=== PATIENT | male | born 1965 | race Caucasian/White ===

== ENCOUNTER 2019-08-20 08:47 | Emergency (ER) | payer MEDICAID, OTHER ==
[~2019-08-20] VITALS: Ht 185.4 cm; Wt 100.0 kg
[~2019-08-20 08:47] MED LIST: ALLO100T PO; FOLI1 PO; MULT-1239 PO; OLAN7.5T2 PO; SERT50TA12 PO; THIA100T67 PO
[2019-08-20 09:11] LABS: BASOPHILS % (AUTO) 0.8 % (0.0-2.0); EOSINOPHILS % (AUTO) 0.9 % (1.0-6.0); HEMATOCRIT 43.7 % (41-53); HEMOGLOBIN 14.7 g/dL (13.5-17.5); LYMPHOCYTES # (AUTO) 1.9 K/uL (1.0-4.8); LYMPHOCYTES % (AUTO) 29.7 % (22.0-44.0); MEAN CORPUSCULAR HEMOGLOBIN 30.5 pg (26.0-34.0); MEAN CORPUSCULAR HGB CONC 33.7 G/dL (31.0-37.0); MEAN CORPUSCULAR VOLUME 91 fL (80-100); MONOCYTES # (AUTO) 0.6 K/uL (0.1-1.0); MONOCYTES % (AUTO) 8.7 % (2.0-9.0); NEUTROPHILS # (AUTO) 3.8 K/uL (1.8-7.7); NEUTROPHILS % (AUTO) 59.9 % (40.0-70.0); PLATELET COUNT (AUTO) 162 K/uL (150-450); RED BLOOD CELL COUNT(AUTO) 4.81 MIL/uL (4.50-5.90); RED CELL DISTRIBUTION WIDTH 15.3 % (11.5-14.5)
[2019-08-20 09:20] LABS: ANION GAP 8 mmol/L (8-16); CALCIUM, TOTAL 9.1 mg/dL (8.8-10.5); CARBON DIOXIDE 30 mmol/L (22-29); CHLORIDE 109 mmol/L (98-107); CREATININE 0.79 mg/dL (0.60-1.30); GLOMERULAR FILTR. RATE CALC > 60 mL/min (>60); GLUCOSE,RANDOM 101 mg/dL (70-110); POTASSIUM 3.6 mmol/L (3.5-5.1); SODIUM SERUM 147 mmol/L (136-145); UREA NITROGEN, BLOOD 16 mg/dL (7-18)
[2019-08-20 09:26] LABS: ALANINE AMINOTRANSFERASE 32 U/L (12-78); ALBUMIN 3.9 g/dL (3.4-5.0); ALKALINE PHOSPHATASE 78 U/L (46-116); ASPARTATE AMINOTRANSFERASE 22 U/L (15-37); BILIRUBIN,TOTAL 0.5 mg/dL (0.1-1.0); TOTAL PROTEIN, SERUM 7.5 g/dL (6.4-8.2)
[2019-08-20] MEDS ORDERED: OLANZapine 5 MG TABLET PO ONE (11:45)
[2019-08-20 13:11] LABS: AMPHET/METH SCREEN,URINE NEGATIVE (NEGATIVE); BARBITURATE SCREEN, URINE NEGATIVE (NEGATIVE); BENZODIAZEPINES SCREEN,URINE NEGATIVE (NEGATIVE); CANNABINOID SCREEN,URINE NEGATIVE (NEGATIVE); COCAINE SCREEN,URINE NEGATIVE (NEGATIVE); METHADONE SCREEN, URINE NEGATIVE (NEGATIVE); OPIATE SCREEN,URINE POSITIVE (NEGATIVE)
[2019-08-20 13:14] LABS: PHENCYCLIDINE SCREEN,URINE NEGATIVE (NEGATIVE)
[2019-08-20 14:08] VITALS: BP 141/85
== END 2019-08-20 14:27 | disposition home or self-care (01) ==
LOC: EMS 08:48
DX: F25.1 Schizoaffective disorder, depressive type (principal); I10 Essential (primary) hypertension; F10.20 Alcohol dependence, uncomplicated; F12.90 Cannabis use, unspecified, uncomplicated; Z79.899 Other long term (current) drug therapy; Z98.890 Other specified postprocedural states
CPT/HCPCS: 36415; 80053; 80307; 85025; 99284; G0480

== ENCOUNTER 2019-11-25 18:07 | Inpatient (IN) | payer MEDICAID, OTHER ==
[~2019-11-25] VITALS: Ht 182.9 cm; Wt 119.3 kg
[~2019-11-25 18:07] MED LIST changes: -ALLO100T PO; -FOLI1 PO; -MULT-1239 PO; -THIA100T67 PO
[2019-11-25] MEDS ORDERED: ALLO300 PO (20:34)
[2019-11-25] MEDS ORDERED: LISI-618 PO (20:34)
[2019-11-25] MEDS ORDERED: HALOPERIDOL 5 MG TABLET PO ONE (21:15)
[2019-11-25] MEDS ORDERED: LORazepam 2 MG TABLET PO ONE (21:15)
[2019-11-25] MEDS ORDERED: DiphenhydrAMINE HCL 25 MG CAPSULE PO ONE (21:15)
[2019-11-25] MEDS ORDERED: HALOPERIDOL 5 MG TABLET PO PRN (21:30)
[2019-11-25] MEDS ORDERED: LORazepam 2 MG TABLET PO PRN (21:30)
[2019-11-25] MEDS ORDERED: ZOLPIDEM TARTRATE 10 MG TABLET PO PRN (21:30)
[2019-11-25 21:47] LABS: BASOPHILS % (AUTO) 1.3 % (0.0-2.0); EOSINOPHILS % (AUTO) 0.3 % (1.0-6.0); HEMATOCRIT 47.6 % (41-53); HEMOGLOBIN 15.5 g/dL (13.5-17.5); LYMPHOCYTES # (AUTO) 1.4 K/uL (1.0-4.8); MEAN CORPUSCULAR HGB CONC 32.6 G/dL (31.0-37.0); MEAN CORPUSCULAR VOLUME 92 fL (80-100); MONOCYTES # (AUTO) 0.4 K/uL (0.1-1.0); MONOCYTES % (AUTO) 9.3 % (2.0-9.0); NEUTROPHILS # (AUTO) 2.2 K/uL (1.8-7.7); NEUTROPHILS % (AUTO) 54.1 % (40.0-70.0); PLATELET COUNT (AUTO) 142 K/uL (150-450); RED BLOOD CELL COUNT(AUTO) 5.17 MIL/uL (4.50-5.90); RED CELL DISTRIBUTION WIDTH 15.2 % (11.5-14.5)
[2019-11-25 21:59] LABS: ANION GAP 11 mmol/L (8-16); CALCIUM, TOTAL 8.8 mg/dL (8.8-10.5); CARBON DIOXIDE 30 mmol/L (22-29); CHLORIDE 103 mmol/L (98-107); CREATININE 0.93 mg/dL (0.60-1.30); GLOMERULAR FILTR. RATE CALC > 60 mL/min (>60); GLUCOSE,RANDOM 110 mg/dL (70-110); SODIUM SERUM 144 mmol/L (136-145); UREA NITROGEN, BLOOD 12 mg/dL (7-18)
[2019-11-25 22:06] LABS: ALANINE AMINOTRANSFERASE 121 U/L (12-78); ALBUMIN 4.2 g/dL (3.4-5.0); ALKALINE PHOSPHATASE 102 U/L (46-116); ASPARTATE AMINOTRANSFERASE 128 U/L (15-37); BILIRUBIN,TOTAL 0.5 mg/dL (0.1-1.0); TOTAL PROTEIN, SERUM 8.1 g/dL (6.4-8.2)
[2019-11-25 22:20] LABS: AMPHET/METH SCREEN,URINE POSITIVE (NEGATIVE); BARBITURATE SCREEN, URINE NEGATIVE (NEGATIVE); BENZODIAZEPINES SCREEN,URINE NEGATIVE (NEGATIVE); CANNABINOID SCREEN,URINE NEGATIVE (NEGATIVE); COCAINE SCREEN,URINE NEGATIVE (NEGATIVE); METHADONE SCREEN, URINE NEGATIVE (NEGATIVE); OPIATE SCREEN,URINE NEGATIVE (NEGATIVE)
[2019-11-25 22:22] LABS: PHENCYCLIDINE SCREEN,URINE NEGATIVE (NEGATIVE)
[2019-11-26] VITALS (12 sets, daily range): BP systolic 109–164; BP diastolic 70–106
[2019-11-26] MEDS ORDERED: PNEUMOCOCCAL VACCINE POLYVALENT 0.5 ML VIAL [PPSV23] IM ONE (02:30)
[2019-11-26] MEDS ORDERED: LORazepam 2 MG TABLET PO PRN (07:00)
[2019-11-26] MEDS: LORazepam 2 MG TABLET PO SCH ×4 (08:39→20:58)
[2019-11-26] MEDS: LISINOPRIL 20 MG TABLET PO SCH (09:01)
[2019-11-26 09:43] LABS: CHOL/HDL RATIO 1.8 (4.2-7.3)
[2019-11-26] MEDS ORDERED: GuaiFENesin/D-METHORPHAN [SUGAR-FREE] 200-20MG/10 ML SYRUP UDCUP PO PRN (11:15)
[2019-11-26] MEDS ORDERED: CloNIDine HCL 0.1 MG TABLET PO PRN (11:15)
[2019-11-26] MEDS ORDERED: IBUPROFEN 400 MG TABLET PO PRN (11:15)
[2019-11-26] MEDS ORDERED: ACETAMINOPHEN 325 MG TABLET PO PRN (11:15)
[2019-11-26] MEDS ORDERED: MAGNESIUM HYDROXIDE SUSPENSION 30 ML UDCUP PO PRN (11:15)
[2019-11-26] MEDS ORDERED: ONDANSETRON HCL 4 MG TABLET PO PRN (11:15)
[2019-11-26] MEDS ORDERED: PETROLATUM,WHITE 28 GM JELLY TP PRN (11:15)
[2019-11-26] MEDS ORDERED: MAG HYDROX/AL HYDROX/SIMETH ES 30 ML SUSPENSION UDCUP PO PRN (11:15)
[2019-11-26] MEDS ORDERED: ALBUTEROL SULFATE HFA 90 MCG/PUFF 8 GM INHALER IH PRN (11:15)
[2019-11-26] MEDS ORDERED: NICOTINE 14 MG/24 HOUR PATCH TD PRN (11:15)
[2019-11-26] MEDS ORDERED: DOCUSATE SODIUM 100 MG CAPSULE PO PRN (11:15)
[2019-11-26] MEDS ORDERED: LOPERAMIDE HCL 2 MG CAPSULE PO PRN (11:15)
[2019-11-26] MEDS ORDERED: OLAN10TA3 PO (11:17)
[2019-11-26] MEDS: OLANZapine 5 MG TABLET PO SCH (16:28)
[2019-11-27] VITALS: BP 130/78
[2019-11-27 08:41] VITALS: BP 160/86
[2019-11-27] MEDS: SERTRALINE HCL 50 MG TABLET PO SCH (09:01)
[2019-11-27] MEDS: OLANZapine 5 MG TABLET PO SCH ×2 (09:01→16:47)
[2019-11-27] MEDS: ALLOPURINOL 300 MG TABLET PO SCH (09:01)
[2019-11-27] MEDS: LISINOPRIL 20 MG TABLET PO SCH (09:02)
[2019-11-27] MEDS: LORazepam 2 MG TABLET PO SCH ×4 (09:02→20:19)
[2019-11-27 09:28] VITALS: BP 160/86
[2019-11-27 12:46] VITALS: BP 155/92
[2019-11-27 16:40] VITALS: BP 131/81
[2019-11-27 20:10] VITALS: BP 144/88
[2019-11-28 00:25] VITALS: BP 154/91
[2019-11-28] MEDS ORDERED: LORazepam 1 MG TABLET PO PRN (07:00)
[2019-11-28] MEDS: LISINOPRIL 20 MG TABLET PO SCH (08:29)
[2019-11-28] MEDS: ALLOPURINOL 300 MG TABLET PO SCH (08:29)
[2019-11-28] MEDS: SERTRALINE HCL 50 MG TABLET PO SCH (08:29)
[2019-11-28] MEDS: OLANZapine 5 MG TABLET PO SCH ×2 (08:29→16:15)
[2019-11-28] MEDS: LORazepam 1 MG TABLET PO SCH ×4 (08:29→20:08)
[2019-11-28 08:39] VITALS: BP 136/100
[2019-11-28 16:46] VITALS: BP 145/76
[2019-11-29] MEDS ORDERED: LORazepam 1 MG TABLET PO PRN (07:00)
[2019-11-29 08:58] VITALS: BP 154/91
[2019-11-29] MEDS: SERTRALINE HCL 50 MG TABLET PO SCH (09:25)
[2019-11-29] MEDS: ALLOPURINOL 300 MG TABLET PO SCH (09:25)
[2019-11-29] MEDS: LISINOPRIL 20 MG TABLET PO SCH (09:25)
[2019-11-29] MEDS: OLANZapine 5 MG TABLET PO SCH ×2 (09:25→16:09)
[2019-11-29] MEDS ORDERED: OLAN5TAB2 PO (14:19)
[2019-11-29] MEDS ORDERED: SERT50TA12 PO (14:19)
== END 2019-11-29 16:45 | disposition home or self-care (01) | DRG 885 ==
LOC: EMS 18:09 → 3EI 21:23
PROVIDERS: ADMIT Psychiatry & Neurology Psychiatry; ATTEND Psychiatry & Neurology Psychiatry
DX: F25.1 Schizoaffective disorder, depressive type (principal); R45.851 Suicidal ideations; E78.5 Hyperlipidemia, unspecified; I10 Essential (primary) hypertension; M10.9 Gout, unspecified; Y90.9 Presence of alcohol in blood, level not specified; F17.200 Nicotine dependence, unspecified, uncomplicated; F41.0 Panic disorder [episodic paroxysmal anxiety]; F41.9 Anxiety disorder, unspecified; Z59.0 Homelessness; Z91.14 Patient's other noncompliance with medication regimen; F10.20 Alcohol dependence, uncomplicated; F12.90 Cannabis use, unspecified, uncomplicated; F19.10 Other psychoactive substance abuse, uncomplicated; R74.0 Nonspecific elevation of levels of transaminase and lactic acid dehydrogenase [LDH]; Z28.21 Immunization not carried out because of patient refusal
CPT/HCPCS: 84443; G0480; Q0162

== ENCOUNTER 2020-02-01 20:49 | Inpatient (IN) | payer MEDICAID ==
[~2020-02-01] VITALS: Ht 185.4 cm; Wt 95.1 kg
[~2020-02-01 20:49] MED LIST changes: +ALLO-45 PO; +LISI-618 PO; +OLAN5TAB2 PO; -OLAN7.5T2 PO
[2020-02-01] MEDS ORDERED: AMLO2.5T96 PO (22:17)
[2020-02-01] MEDS ORDERED: HALOPERIDOL 5 MG TABLET PO PRN (22:30)
[2020-02-02 00:36] VITALS: BP 136/75
[2020-02-02] MEDS ORDERED: PNEUMOCOCCAL VACCINE POLYVALENT 0.5 ML VIAL [PPSV23] IM ONE (03:30)
[2020-02-02 08:15] VITALS: BP 118/64
[2020-02-02] MEDS: LISINOPRIL 20 MG TABLET PO SCH (08:24)
[2020-02-02] MEDS: AmLODIPine BESYLATE 2.5 MG TABLET PO SCH (08:24)
[2020-02-02 08:44] LABS: HEMATOCRIT 38.6 % (41-53); HEMOGLOBIN 12.9 g/dL (13.5-17.5); RED BLOOD CELL COUNT(AUTO) 4.06 MIL/uL (4.50-5.90)
[2020-02-02 08:45] LABS: BASOPHILS % (AUTO) 0.5 % (0.0-2.0); EOSINOPHILS % (AUTO) 4.8 % (1.0-6.0); LYMPHOCYTES # (AUTO) 1.2 K/uL (1.0-4.8); LYMPHOCYTES % (AUTO) 36.4 % (22.0-44.0); MEAN CORPUSCULAR HEMOGLOBIN 31.8 pg (26.0-34.0); MEAN CORPUSCULAR HGB CONC 33.4 G/dL (31.0-37.0); MEAN CORPUSCULAR VOLUME 95 fL (80-100); MONOCYTES # (AUTO) 0.2 K/uL (0.1-1.0); MONOCYTES % (AUTO) 7.6 % (2.0-9.0); NEUTROPHILS # (AUTO) 1.6 K/uL (1.8-7.7); NEUTROPHILS % (AUTO) 50.7 % (40.0-70.0); RED CELL DISTRIBUTION WIDTH 16.2 % (11.5-14.5)
[2020-02-02] MEDS ORDERED: CloNIDine HCL 0.1 MG TABLET PO PRN (08:45)
[2020-02-02] MEDS ORDERED: ONDANSETRON HCL 4 MG TABLET PO PRN (08:45)
[2020-02-02] MEDS ORDERED: ACETAMINOPHEN 325 MG TABLET PO PRN (08:45)
[2020-02-02] MEDS ORDERED: LOPERAMIDE HCL 2 MG CAPSULE PO PRN (08:45)
[2020-02-02] MEDS ORDERED: NICOTINE 14 MG/24 HOUR PATCH TD PRN (08:45)
[2020-02-02] MEDS ORDERED: GuaiFENesin/D-METHORPHAN [SUGAR-FREE] 200-20MG/10 ML SYRUP UDCUP PO PRN (08:45)
[2020-02-02] MEDS ORDERED: MAGNESIUM HYDROXIDE SUSPENSION 30 ML UDCUP PO PRN (08:45)
[2020-02-02] MEDS ORDERED: IBUPROFEN 400 MG TABLET PO PRN (08:45)
[2020-02-02] MEDS ORDERED: DOCUSATE SODIUM 100 MG CAPSULE PO PRN (08:45)
[2020-02-02] MEDS ORDERED: PETROLATUM,WHITE 28 GM JELLY TP PRN (08:45)
[2020-02-02] MEDS ORDERED: ALBUTEROL SULFATE HFA 90 MCG/PUFF 8 GM INHALER IH PRN (08:45)
[2020-02-02 08:49] LABS: HEMOGLOBIN A1C 5.3 % (3.8-5.6)
[2020-02-02 08:51] LABS: ALANINE AMINOTRANSFERASE 109 U/L (12-78); ALBUMIN 3.2 g/dL (3.4-5.0); ALKALINE PHOSPHATASE 67 U/L (46-116); ANION GAP 8 mmol/L (8-16); ASPARTATE AMINOTRANSFERASE 61 U/L (15-37); BILIRUBIN,TOTAL 0.4 mg/dL (0.1-1.0); CALCIUM, TOTAL 8.8 mg/dL (8.8-10.5); CARBON DIOXIDE 31 mmol/L (22-29); CHLORIDE 105 mmol/L (98-107); CHOLESTEROL 171 mg/dL (131-200); CREATININE 0.75 mg/dL (0.60-1.30); FREE T4 (FREE THYROXINE) 0.84 ng/dL (0.76-1.46); GLOMERULAR FILTR. RATE CALC > 60 mL/min (>60); GLUCOSE,RANDOM 92 mg/dL (70-110); HDL CHOLESTEROL 85 mg/dL (40-60); LDL CHOL (CALC.) 74 mg/dL (0-130); POTASSIUM 3.1 mmol/L (3.5-5.1); SODIUM SERUM 144 mmol/L (136-145); THYROID STIMULATING HORMONE 2.19 uIU/mL (0.36-3.74); TOTAL PROTEIN, SERUM 6.4 g/dL (6.4-8.2); TRIGLYCERIDES 59 mg/dL (15-150); UREA NITROGEN, BLOOD 10 mg/dL (7-18)
[2020-02-02 08:57] LABS: PLATELET COUNT (AUTO) 71 K/uL (150-450)
[2020-02-02] MEDS ORDERED: POTASSIUM CHLORIDE 20 MEQ ER TABLET PO ONE (12:30)
[2020-02-02] MEDS: SERTRALINE HCL 50 MG TABLET PO SCH (15:48)
[2020-02-02] MEDS: ALLOPURINOL 300 MG TABLET PO SCH (15:49)
[2020-02-02 16:00] VITALS: BP 140/82
[2020-02-02] MEDS: OLANZapine 5 MG TABLET PO SCH (20:09)
[2020-02-03 01:02] VITALS: BP 146/85
[2020-02-03] MEDS: LISINOPRIL 20 MG TABLET PO SCH (08:47)
[2020-02-03] MEDS: AmLODIPine BESYLATE 2.5 MG TABLET PO SCH (08:47)
[2020-02-03] MEDS: ALLOPURINOL 300 MG TABLET PO SCH (08:47)
[2020-02-03] MEDS: SERTRALINE HCL 50 MG TABLET PO SCH (08:48)
[2020-02-03] MEDS: OLANZapine 5 MG TABLET PO SCH ×2 (08:48→20:03)
[2020-02-03 09:22] VITALS: BP 141/80
[2020-02-03 16:01] VITALS: BP 118/79
[2020-02-04 01:08] VITALS: BP 126/83
[2020-02-04 08:04] VITALS: BP 118/68
[2020-02-04] MEDS: OLANZapine 5 MG TABLET PO SCH ×2 (08:09→20:08)
[2020-02-04] MEDS: AmLODIPine BESYLATE 2.5 MG TABLET PO SCH (08:09)
[2020-02-04] MEDS: SERTRALINE HCL 50 MG TABLET PO SCH (08:09)
[2020-02-04] MEDS: ALLOPURINOL 300 MG TABLET PO SCH (08:09)
[2020-02-04] MEDS: LISINOPRIL 20 MG TABLET PO SCH (08:09)
[2020-02-04 16:05] VITALS: BP_SYST 118; BP_SYST 120; BP_DIAS 68; BP_DIAS 70
[2020-02-04] MEDS: ZOLPIDEM TARTRATE 10 MG TABLET PO PRN (20:49)
[2020-02-05 01:02] VITALS: BP 108/76
[2020-02-05] MEDS: OLANZapine 5 MG TABLET PO SCH ×2 (08:04→20:43)
[2020-02-05] MEDS: AmLODIPine BESYLATE 2.5 MG TABLET PO SCH (08:04)
[2020-02-05] MEDS: ALLOPURINOL 300 MG TABLET PO SCH (08:04)
[2020-02-05] MEDS: SERTRALINE HCL 50 MG TABLET PO SCH (08:04)
[2020-02-05] MEDS: LISINOPRIL 20 MG TABLET PO SCH (08:04)
[2020-02-05 08:06] VITALS: BP 121/70
[2020-02-05] MEDS: LORazepam 2 MG TABLET PO PRN (17:35)
[2020-02-05 18:01] VITALS: BP 144/83
[2020-02-05] MEDS: ZOLPIDEM TARTRATE 10 MG TABLET PO PRN (20:49)
[2020-02-06 00:24] VITALS: BP 132/68
[2020-02-06] MEDS: LISINOPRIL 20 MG TABLET PO SCH (08:37)
[2020-02-06] MEDS: AmLODIPine BESYLATE 2.5 MG TABLET PO SCH (08:37)
[2020-02-06] MEDS: ALLOPURINOL 300 MG TABLET PO SCH (08:37)
[2020-02-06] MEDS: OLANZapine 5 MG TABLET PO SCH ×2 (08:37→20:04)
[2020-02-06] MEDS: SERTRALINE HCL 50 MG TABLET PO SCH (08:37)
[2020-02-06 08:55] VITALS: BP 126/77
[2020-02-06] MEDS: LORazepam 2 MG TABLET PO PRN ×2 (10:45→17:11)
[2020-02-06 16:20] VITALS: BP 108/61
[2020-02-06] MEDS: ZOLPIDEM TARTRATE 10 MG TABLET PO PRN (21:04)
[2020-02-07 06:16] VITALS: BP 139/78
[2020-02-07] MEDS: AmLODIPine BESYLATE 2.5 MG TABLET PO SCH (08:01)
[2020-02-07] MEDS: SERTRALINE HCL 50 MG TABLET PO SCH (08:01)
[2020-02-07] MEDS: ALLOPURINOL 300 MG TABLET PO SCH (08:01)
[2020-02-07] MEDS: LISINOPRIL 20 MG TABLET PO SCH (08:01)
[2020-02-07] MEDS: OLANZapine 5 MG TABLET PO SCH ×2 (08:01→20:34)
[2020-02-07 08:28] VITALS: BP 130/96
[2020-02-07] MEDS: LORazepam 2 MG TABLET PO PRN (15:54)
[2020-02-07 16:03] VITALS: BP 117/74
[2020-02-07] MEDS: ZOLPIDEM TARTRATE 10 MG TABLET PO PRN (20:51)
[2020-02-08] MEDS: LORazepam 2 MG TABLET PO PRN ×2 (03:42→16:18)
[2020-02-08 06:30] VITALS: BP 124/82
[2020-02-08] MEDS: ALLOPURINOL 300 MG TABLET PO SCH (08:02)
[2020-02-08] MEDS: OLANZapine 5 MG TABLET PO SCH ×2 (08:03→20:13)
[2020-02-08] MEDS: AmLODIPine BESYLATE 2.5 MG TABLET PO SCH (08:03)
[2020-02-08] MEDS: LISINOPRIL 20 MG TABLET PO SCH (08:03)
[2020-02-08] MEDS: SERTRALINE HCL 50 MG TABLET PO SCH (08:03)
[2020-02-08] MEDS: MULTIVITAMINS WITH IRON TABLET PO SCH (08:03)
[2020-02-08 08:05] VITALS: BP 128/74
[2020-02-08 16:00] VITALS: BP 127/78
[2020-02-09 01:04] VITALS: BP 123/72
[2020-02-09 08:07] VITALS: BP 119/69
[2020-02-09] MEDS: LORazepam 2 MG TABLET PO PRN ×2 (08:15→17:05)
[2020-02-09] MEDS: MULTIVITAMINS WITH IRON TABLET PO SCH (08:15)
[2020-02-09] MEDS: AmLODIPine BESYLATE 2.5 MG TABLET PO SCH (08:15)
[2020-02-09] MEDS: OLANZapine 5 MG TABLET PO SCH ×2 (08:15→20:09)
[2020-02-09] MEDS: ALLOPURINOL 300 MG TABLET PO SCH (08:15)
[2020-02-09] MEDS: LISINOPRIL 20 MG TABLET PO SCH (08:15)
[2020-02-09] MEDS: SERTRALINE HCL 50 MG TABLET PO SCH (08:16)
[2020-02-09 16:18] VITALS: BP 120/63
[2020-02-10 00:45] VITALS: BP 122/80
[2020-02-10] MEDS: LORazepam 2 MG TABLET PO PRN ×2 (00:48→12:27)
[2020-02-10] MEDS: ZOLPIDEM TARTRATE 10 MG TABLET PO PRN (00:48)
[2020-02-10 08:10] VITALS: BP 122/81
[2020-02-10] MEDS: MULTIVITAMINS WITH IRON TABLET PO SCH (09:20)
[2020-02-10] MEDS: OLANZapine 5 MG TABLET PO SCH ×2 (09:20→20:26)
[2020-02-10] MEDS: SERTRALINE HCL 50 MG TABLET PO SCH (09:20)
[2020-02-10] MEDS: LISINOPRIL 20 MG TABLET PO SCH (09:20)
[2020-02-10] MEDS: ALLOPURINOL 300 MG TABLET PO SCH (09:20)
[2020-02-10] MEDS: AmLODIPine BESYLATE 2.5 MG TABLET PO SCH (09:20)
[2020-02-10 16:02] VITALS: BP 121/76
[2020-02-11 00:57] VITALS: BP 113/89
[2020-02-11] MEDS: ZOLPIDEM TARTRATE 10 MG TABLET PO PRN (01:03)
[2020-02-11 08:22] VITALS: BP 102/65
[2020-02-11 09:50] VITALS: BP 124/81
[2020-02-11] MEDS: OLANZapine 5 MG TABLET PO SCH ×2 (09:54→20:16)
[2020-02-11] MEDS: LISINOPRIL 20 MG TABLET PO SCH (09:54)
[2020-02-11] MEDS: ALLOPURINOL 300 MG TABLET PO SCH (09:54)
[2020-02-11] MEDS: AmLODIPine BESYLATE 2.5 MG TABLET PO SCH (09:54)
[2020-02-11] MEDS: SERTRALINE HCL 50 MG TABLET PO SCH (09:54)
[2020-02-11] MEDS: MULTIVITAMINS WITH IRON TABLET PO SCH (09:54)
[2020-02-11] MEDS: MAG HYDROX/AL HYDROX/SIMETH ES 30 ML SUSPENSION UDCUP PO PRN (10:01)
[2020-02-11] MEDS: LORazepam 2 MG TABLET PO PRN (13:34)
[2020-02-11 16:35] VITALS: BP 109/63
[2020-02-12 06:42] VITALS: BP 115/72
[2020-02-12 07:26] LABS: BASOPHILS % (AUTO) 0.6 % (0.0-2.0); EOSINOPHILS % (AUTO) 3.5 % (1.0-6.0); HEMATOCRIT 46.4 % (41-53); LYMPHOCYTES # (AUTO) 1.4 K/uL (1.0-4.8); LYMPHOCYTES % (AUTO) 19.7 % (22.0-44.0); MEAN CORPUSCULAR HGB CONC 34.5 G/dL (31.0-37.0); MEAN CORPUSCULAR VOLUME 96 fL (80-100); MONOCYTES # (AUTO) 0.9 K/uL (0.1-1.0); MONOCYTES % (AUTO) 12.8 % (2.0-9.0); NEUTROPHILS # (AUTO) 4.7 K/uL (1.8-7.7); NEUTROPHILS % (AUTO) 63.4 % (40.0-70.0); PLATELET COUNT (AUTO) 311 K/uL (150-450); RED BLOOD CELL COUNT(AUTO) 4.86 MIL/uL (4.50-5.90); RED CELL DISTRIBUTION WIDTH 15.5 % (11.5-14.5)
[2020-02-12 07:49] LABS: ALBUMIN 4.3 g/dL (3.4-5.0); BILIRUBIN,TOTAL 0.6 mg/dL (0.1-1.0); CALCIUM, TOTAL 9.3 mg/dL (8.8-10.5); CREATININE 1.56 mg/dL (0.60-1.30); POTASSIUM 4.8 mmol/L (3.5-5.1); TOTAL PROTEIN, SERUM 7.9 g/dL (6.4-8.2)
[2020-02-12 08:15] VITALS: BP 119/71
[2020-02-12] MEDS: ALLOPURINOL 300 MG TABLET PO SCH (08:15)
[2020-02-12] MEDS: MULTIVITAMINS WITH IRON TABLET PO SCH (08:16)
[2020-02-12] MEDS: LISINOPRIL 20 MG TABLET PO SCH (08:16)
[2020-02-12] MEDS: MAG HYDROX/AL HYDROX/SIMETH ES 30 ML SUSPENSION UDCUP PO PRN (08:16)
[2020-02-12] MEDS: SERTRALINE HCL 50 MG TABLET PO SCH (08:16)
[2020-02-12] MEDS: LORazepam 2 MG TABLET PO PRN (08:16)
[2020-02-12] MEDS: AmLODIPine BESYLATE 2.5 MG TABLET PO SCH (08:16)
[2020-02-12] MEDS: OLANZapine 5 MG TABLET PO SCH (08:16)
[2020-02-12] MEDS ORDERED: MVITFE PO (11:40)
== END 2020-02-12 14:36 | disposition home or self-care (01) | DRG 885 ==
LOC: B2S 22:28
DX: F25.1 Schizoaffective disorder, depressive type (principal); R45.851 Suicidal ideations; F10.20 Alcohol dependence, uncomplicated; I10 Essential (primary) hypertension; M10.9 Gout, unspecified; D64.9 Anemia, unspecified; D72.819 Decreased white blood cell count, unspecified; F41.9 Anxiety disorder, unspecified; E87.6 Hypokalemia; Z79.899 Other long term (current) drug therapy; Z59.0 Homelessness
CPT/HCPCS: 83036; 84132; 84439; 84443; 90732

== ENCOUNTER 2020-09-01 12:33 | Inpatient (IN) | payer MEDICAID, OTHER ==
[~2020-09-01] VITALS: Ht 185.4 cm; Wt 99.7 kg
[~2020-09-01 12:33] MED LIST changes: +AMLO2.5T96 PO; -LISI-618 PO; +LISI20TA24 PO; +MVITFE PO; +SERT-158 PO; -SERT50TA12 PO
[2020-09-01 14:41] LABS: ANION GAP 18 mmol/L (8-16); CALCIUM, TOTAL 9.2 mg/dL (8.8-10.5); CARBON DIOXIDE 23 mmol/L (22-29); CHLORIDE 100 mmol/L (98-107); CREATININE 0.63 mg/dL (0.60-1.30); GLOMERULAR FILTR. RATE CALC > 60 mL/min (>60); GLUCOSE,RANDOM 75 mg/dL (70-110); POTASSIUM 3.1 mmol/L (3.5-5.1); SODIUM SERUM 141 mmol/L (136-145); UREA NITROGEN, BLOOD 5 mg/dL (7-18)
[2020-09-01 14:48] LABS: ALANINE AMINOTRANSFERASE 34 U/L (12-78); ALBUMIN 4.1 g/dL (3.4-5.0); ALKALINE PHOSPHATASE 93 U/L (46-116); ASPARTATE AMINOTRANSFERASE 28 U/L (15-37); BILIRUBIN,TOTAL 0.7 mg/dL (0.1-1.0); TOTAL PROTEIN, SERUM 8.2 g/dL (6.4-8.2)
[2020-09-01] MEDS ORDERED: POTASSIUM CHLORIDE 20 MEQ ER TABLET PO ONE (15:15)
[2020-09-01 15:32] LABS: COVID AG,FIA SOURCE NASOPHARYNGEAL
[2020-09-01 16:31] LABS: BASOPHILS % (AUTO) 0.7 % (0.0-2.0); EOSINOPHILS % (AUTO) 0.3 % (1.0-6.0); HEMATOCRIT 40.2 % (41-53); HEMOGLOBIN 13.5 g/dL (13.5-17.5); LYMPHOCYTES # (AUTO) 1.8 K/uL (1.0-4.8); LYMPHOCYTES % (AUTO) 31.5 % (22.0-44.0); MEAN CORPUSCULAR HEMOGLOBIN 29.7 pg (26.0-34.0); MEAN CORPUSCULAR HGB CONC 33.7 G/dL (31.0-37.0); MEAN CORPUSCULAR VOLUME 88 fL (80-100); MONOCYTES # (AUTO) 0.5 K/uL (0.1-1.0); MONOCYTES % (AUTO) 8.4 % (2.0-9.0); NEUTROPHILS # (AUTO) 3.4 K/uL (1.8-7.7); NEUTROPHILS % (AUTO) 59.1 % (40.0-70.0); PLATELET COUNT (AUTO) 171 K/uL (150-450); RED BLOOD CELL COUNT(AUTO) 4.56 MIL/uL (4.50-5.90); RED CELL DISTRIBUTION WIDTH 16.5 % (11.5-14.5)
[2020-09-01] MEDS ORDERED: LORazepam 2 MG TABLET PO PRN (22:15)
[2020-09-01] MEDS ORDERED: ZOLPIDEM TARTRATE 10 MG TABLET PO PRN (22:15)
[2020-09-02] VITALS (8 sets, daily range): BP systolic 112–154; BP diastolic 68–94
[2020-09-02] MEDS ORDERED: INFLUENZA VIRUS VACCINE QVS 2020-21 (6MO+)/PF 60 MCG/0.5 ML SYRINGE IM ONE (04:45)
[2020-09-02 07:24] LABS: CHOL/HDL RATIO 2.6 (4.2-7.3)
[2020-09-02] MEDS ORDERED: NICOTINE 14 MG/24 HOUR PATCH TD PRN (08:30)
[2020-09-02] MEDS ORDERED: ONDANSETRON HCL 4 MG TABLET PO PRN (08:30)
[2020-09-02] MEDS ORDERED: ACETAMINOPHEN 325 MG TABLET PO PRN (08:30)
[2020-09-02] MEDS ORDERED: IBUPROFEN 400 MG TABLET PO PRN (08:30)
[2020-09-02] MEDS ORDERED: ALBUTEROL SULFATE HFA 90 MCG/PUFF 8 GM INHALER IH PRN (08:30)
[2020-09-02] MEDS ORDERED: PETROLATUM,WHITE 28 GM JELLY TP PRN (08:30)
[2020-09-02] MEDS ORDERED: MAGNESIUM HYDROXIDE SUSPENSION 30 ML UDCUP PO PRN (08:30)
[2020-09-02] MEDS ORDERED: GuaiFENesin/D-METHORPHAN [SUGAR-FREE] 200-20MG/10 ML SYRUP UDCUP PO PRN (08:30)
[2020-09-02] MEDS ORDERED: MAG HYDROX/AL HYDROX/SIMETH ES 30 ML SUSPENSION UDCUP PO PRN (08:30)
[2020-09-02] MEDS ORDERED: CloNIDine HCL 0.1 MG TABLET PO PRN (08:30)
[2020-09-02] MEDS ORDERED: LOPERAMIDE HCL 2 MG CAPSULE PO PRN (08:30)
[2020-09-02] MEDS ORDERED: DOCUSATE SODIUM 100 MG CAPSULE PO PRN (08:30)
[2020-09-02] MEDS ORDERED: MULTIVITAMINS WITH IRON TABLET PO SCH (09:00)
[2020-09-02] MEDS: AmLODIPine BESYLATE 2.5 MG TABLET PO SCH (10:46)
[2020-09-02] MEDS: ALLOPURINOL 300 MG TABLET PO SCH (10:47)
[2020-09-02] MEDS: LISINOPRIL 20 MG TABLET PO SCH (10:47)
[2020-09-02] MEDS ORDERED: CYANOCOBALAMIN 1,000 MCG/ML VIAL IM ONE (15:30)
[2020-09-02] MEDS ORDERED: LORazepam 2 MG TABLET PO PRN (15:30)
[2020-09-02 15:35] LABS: APPEARANCE,URINE CLEAR (CLEAR); BILIRUBIN,URINE NEGATIVE (NEGATIVE); GLUCOSE, URINE (UA) NEGATIVE (NEGATIVE); KETONES,URINE NEGATIVE (NEGATIVE); LEUKOCYTE ESTERASE ,URINE NEGATIVE (NEGATIVE); NITRATE,URINE NEGATIVE (NEGATIVE); OCCULT BLOOD,URINE NEGATIVE (NEGATIVE); PH,URINE 8.5 (5.0-8.0); PROTEIN,URINE NEGATIVE (NEGATIVE)
[2020-09-02 15:40] LABS: AMPHET/METH SCREEN,URINE NEGATIVE (NEGATIVE); BARBITURATE SCREEN, URINE NEGATIVE (NEGATIVE); BENZODIAZEPINES SCREEN,URINE POSITIVE (NEGATIVE); CANNABINOID SCREEN,URINE NEGATIVE (NEGATIVE); COCAINE SCREEN,URINE NEGATIVE (NEGATIVE); METHADONE SCREEN, URINE NEGATIVE (NEGATIVE); OPIATE SCREEN,URINE NEGATIVE (NEGATIVE)
[2020-09-02 15:41] LABS: PHENCYCLIDINE SCREEN,URINE NEGATIVE (NEGATIVE)
[2020-09-02] MEDS: THIAMINE 100 MG TABLET PO SCH (17:03)
[2020-09-02] MEDS: FOLIC ACID 1 MG TABLET PO SCH (17:03)
[2020-09-02] MEDS: MULTIVITAMINS WITH MINERALS, THERAPEUTIC TABLET PO SCH (17:03)
[2020-09-02] MEDS: SERTRALINE HCL 50 MG TABLET PO SCH (17:03)
[2020-09-02] MEDS: OLANZapine 5 MG TABLET PO SCH (20:23)
[2020-09-03 04:00] VITALS: BP 126/64
[2020-09-03] MEDS ORDERED: LORazepam 2 MG TABLET PO PRN (07:00)
[2020-09-03 08:46] VITALS: BP 110/66
[2020-09-03] MEDS: ALLOPURINOL 300 MG TABLET PO SCH (09:52)
[2020-09-03] MEDS: MULTIVITAMINS WITH MINERALS, THERAPEUTIC TABLET PO SCH (09:52)
[2020-09-03] MEDS: LISINOPRIL 20 MG TABLET PO SCH (09:52)
[2020-09-03] MEDS: OLANZapine 5 MG TABLET PO SCH ×2 (09:52→20:28)
[2020-09-03] MEDS: FOLIC ACID 1 MG TABLET PO SCH (09:52)
[2020-09-03] MEDS: LORazepam 2 MG TABLET PO SCH ×4 (09:52→20:29)
[2020-09-03] MEDS: SERTRALINE HCL 50 MG TABLET PO SCH (09:52)
[2020-09-03] MEDS: AmLODIPine BESYLATE 2.5 MG TABLET PO SCH (09:52)
[2020-09-03] MEDS: THIAMINE 100 MG TABLET PO SCH ×2 (09:53→16:50)
[2020-09-03 14:53] VITALS: BP 126/70
[2020-09-03 16:13] VITALS: BP 128/78
[2020-09-04 06:21] VITALS: BP 119/52
[2020-09-04 08:46] VITALS: BP 120/68
[2020-09-04] MEDS: AmLODIPine BESYLATE 2.5 MG TABLET PO SCH (09:24)
[2020-09-04] MEDS: LORazepam 2 MG TABLET PO SCH ×4 (09:24→20:47)
[2020-09-04] MEDS: THIAMINE 100 MG TABLET PO SCH ×2 (09:24→16:40)
[2020-09-04] MEDS: LISINOPRIL 20 MG TABLET PO SCH (09:24)
[2020-09-04] MEDS: FOLIC ACID 1 MG TABLET PO SCH (09:24)
[2020-09-04] MEDS: SERTRALINE HCL 50 MG TABLET PO SCH (09:24)
[2020-09-04] MEDS: MULTIVITAMINS WITH MINERALS, THERAPEUTIC TABLET PO SCH (09:24)
[2020-09-04] MEDS: OLANZapine 5 MG TABLET PO SCH ×2 (09:24→20:47)
[2020-09-04] MEDS: ALLOPURINOL 300 MG TABLET PO SCH (09:24)
[2020-09-04 16:00] VITALS: BP 126/79
[2020-09-04 19:54] VITALS: BP 126/79
[2020-09-04 20:53] VITALS: BP 136/65
[2020-09-05] MEDS ORDERED: LORazepam 1 MG TABLET PO PRN (07:00)
[2020-09-05 07:32] VITALS: BP 136/89
[2020-09-05 08:00] VITALS: BP 145/91
[2020-09-05] MEDS: ALLOPURINOL 300 MG TABLET PO SCH (08:28)
[2020-09-05] MEDS: AmLODIPine BESYLATE 2.5 MG TABLET PO SCH (08:28)
[2020-09-05] MEDS: MULTIVITAMINS WITH MINERALS, THERAPEUTIC TABLET PO SCH (08:28)
[2020-09-05] MEDS: FOLIC ACID 1 MG TABLET PO SCH (08:28)
[2020-09-05] MEDS: THIAMINE 100 MG TABLET PO SCH ×2 (08:28→17:00)
[2020-09-05] MEDS: LORazepam 1 MG TABLET PO SCH ×4 (08:28→20:32)
[2020-09-05] MEDS: OLANZapine 5 MG TABLET PO SCH ×2 (08:28→20:31)
[2020-09-05] MEDS: SERTRALINE HCL 50 MG TABLET PO SCH (08:28)
[2020-09-05] MEDS: LISINOPRIL 20 MG TABLET PO SCH (08:30)
[2020-09-05 16:59] VITALS: BP 114/64
[2020-09-06] MEDS ORDERED: LORazepam 1 MG TABLET PO PRN (07:00)
[2020-09-06 09:10] VITALS: BP 130/93
[2020-09-06] MEDS: LISINOPRIL 20 MG TABLET PO SCH (10:35)
[2020-09-06] MEDS: ALLOPURINOL 300 MG TABLET PO SCH (10:35)
[2020-09-06] MEDS: THIAMINE 100 MG TABLET PO SCH ×2 (10:36→16:48)
[2020-09-06] MEDS: AmLODIPine BESYLATE 2.5 MG TABLET PO SCH (10:36)
[2020-09-06] MEDS: OLANZapine 5 MG TABLET PO SCH ×2 (10:36→20:30)
[2020-09-06] MEDS: MULTIVITAMINS WITH MINERALS, THERAPEUTIC TABLET PO SCH (10:36)
[2020-09-06] MEDS: FOLIC ACID 1 MG TABLET PO SCH (10:36)
[2020-09-06] MEDS: SERTRALINE HCL 50 MG TABLET PO SCH (10:36)
[2020-09-06 16:00] VITALS: BP 120/84
[2020-09-07 08:30] VITALS: BP 123/70
[2020-09-07] MEDS: SERTRALINE HCL 50 MG TABLET PO SCH (09:25)
[2020-09-07] MEDS: THIAMINE 100 MG TABLET PO SCH ×2 (09:25→16:43)
[2020-09-07] MEDS: OLANZapine 5 MG TABLET PO SCH ×2 (09:25→20:53)
[2020-09-07] MEDS: MULTIVITAMINS WITH MINERALS, THERAPEUTIC TABLET PO SCH (09:25)
[2020-09-07] MEDS: LISINOPRIL 20 MG TABLET PO SCH (09:25)
[2020-09-07] MEDS: ALLOPURINOL 300 MG TABLET PO SCH (09:25)
[2020-09-07] MEDS: AmLODIPine BESYLATE 2.5 MG TABLET PO SCH (09:25)
[2020-09-07] MEDS: FOLIC ACID 1 MG TABLET PO SCH (09:25)
[2020-09-07 16:24] VITALS: BP 118/70
[2020-09-08 08:31] VITALS: BP 151/89
[2020-09-08] MEDS: ALLOPURINOL 300 MG TABLET PO SCH (10:43)
[2020-09-08] MEDS: FOLIC ACID 1 MG TABLET PO SCH (10:44)
[2020-09-08] MEDS: MULTIVITAMINS WITH MINERALS, THERAPEUTIC TABLET PO SCH (10:44)
[2020-09-08] MEDS: THIAMINE 100 MG TABLET PO SCH ×2 (10:44→17:02)
[2020-09-08] MEDS: LISINOPRIL 20 MG TABLET PO SCH (10:45)
[2020-09-08] MEDS: OLANZapine 5 MG TABLET PO SCH ×2 (10:45→20:43)
[2020-09-08] MEDS: SERTRALINE HCL 50 MG TABLET PO SCH (10:45)
[2020-09-08] MEDS: AmLODIPine BESYLATE 2.5 MG TABLET PO SCH (10:45)
[2020-09-08 16:42] VITALS: BP 138/74
[2020-09-08 21:06] LABS: COVID AG,FIA SOURCE NASAL SWAB
[2020-09-09 08:33] VITALS: BP 117/76
[2020-09-09] MEDS: OLANZapine 5 MG TABLET PO SCH ×2 (10:03→21:26)
[2020-09-09] MEDS: FOLIC ACID 1 MG TABLET PO SCH (10:03)
[2020-09-09] MEDS: AmLODIPine BESYLATE 2.5 MG TABLET PO SCH (10:03)
[2020-09-09] MEDS: ALLOPURINOL 300 MG TABLET PO SCH (10:03)
[2020-09-09] MEDS: THIAMINE 100 MG TABLET PO SCH ×2 (10:03→17:39)
[2020-09-09] MEDS: SERTRALINE HCL 50 MG TABLET PO SCH (10:03)
[2020-09-09] MEDS: LISINOPRIL 20 MG TABLET PO SCH (10:03)
[2020-09-09] MEDS: MULTIVITAMINS WITH MINERALS, THERAPEUTIC TABLET PO SCH (10:03)
[2020-09-09 16:14] VITALS: BP 121/86
[2020-09-10] MEDS: ALLOPURINOL 300 MG TABLET PO SCH (09:04)
[2020-09-10] MEDS: FOLIC ACID 1 MG TABLET PO SCH (09:04)
[2020-09-10] MEDS: MULTIVITAMINS WITH MINERALS, THERAPEUTIC TABLET PO SCH (09:04)
[2020-09-10] MEDS: AmLODIPine BESYLATE 2.5 MG TABLET PO SCH (09:04)
[2020-09-10] MEDS: THIAMINE 100 MG TABLET PO SCH ×2 (09:04→16:19)
[2020-09-10] MEDS: LISINOPRIL 20 MG TABLET PO SCH (09:04)
[2020-09-10] MEDS: OLANZapine 5 MG TABLET PO SCH ×2 (09:04→20:06)
[2020-09-10] MEDS: SERTRALINE HCL 50 MG TABLET PO SCH (09:04)
[2020-09-10 10:36] VITALS: BP 120/82
[2020-09-10 16:00] VITALS: BP 110/76
[2020-09-11] MEDS: SERTRALINE HCL 50 MG TABLET PO SCH (08:30)
[2020-09-11] MEDS: THIAMINE 100 MG TABLET PO SCH ×2 (08:30→16:35)
[2020-09-11] MEDS: OLANZapine 5 MG TABLET PO SCH ×2 (08:30→20:44)
[2020-09-11] MEDS: ALLOPURINOL 300 MG TABLET PO SCH (08:30)
[2020-09-11] MEDS: MULTIVITAMINS WITH MINERALS, THERAPEUTIC TABLET PO SCH (08:30)
[2020-09-11] MEDS: FOLIC ACID 1 MG TABLET PO SCH (08:30)
[2020-09-11] MEDS: HALOPERIDOL 5 MG TABLET PO PRN ×2 (08:30→18:34)
[2020-09-11] MEDS: LISINOPRIL 20 MG TABLET PO SCH (08:30)
[2020-09-11] MEDS: AmLODIPine BESYLATE 2.5 MG TABLET PO SCH (08:30)
[2020-09-11 08:34] VITALS: BP 126/61
[2020-09-11 17:41] VITALS: BP 104/69
[2020-09-12] MEDS: OLANZapine 5 MG TABLET PO SCH ×2 (08:13→20:18)
[2020-09-12] MEDS: AmLODIPine BESYLATE 2.5 MG TABLET PO SCH (08:13)
[2020-09-12] MEDS: LISINOPRIL 20 MG TABLET PO SCH (08:13)
[2020-09-12] MEDS: SERTRALINE HCL 50 MG TABLET PO SCH (08:13)
[2020-09-12] MEDS: ALLOPURINOL 300 MG TABLET PO SCH (08:13)
[2020-09-12] MEDS: MULTIVITAMINS WITH MINERALS, THERAPEUTIC TABLET PO SCH (08:13)
[2020-09-12] MEDS: THIAMINE 100 MG TABLET PO SCH (08:13)
[2020-09-12 08:27] VITALS: BP 110/79
[2020-09-12] MEDS ORDERED: TUBERCULIN, PURIFIED PROTEIN DERIVATIVE 5 TU/0.1 ML SYRINGE ID ONE (14:30)
[2020-09-12 16:00] VITALS: BP 129/85
[2020-09-12] MEDS: HALOPERIDOL 5 MG TABLET PO PRN (18:35)
[2020-09-13] MEDS: SERTRALINE HCL 50 MG TABLET PO SCH (08:48)
[2020-09-13] MEDS: OLANZapine 5 MG TABLET PO SCH (08:48)
[2020-09-13] MEDS: ALLOPURINOL 300 MG TABLET PO SCH (08:48)
[2020-09-13] MEDS: MULTIVITAMINS WITH MINERALS, THERAPEUTIC TABLET PO SCH (08:48)
[2020-09-13] MEDS: LISINOPRIL 20 MG TABLET PO SCH (08:48)
[2020-09-13] MEDS: AmLODIPine BESYLATE 2.5 MG TABLET PO SCH (08:48)
== END 2020-09-13 10:15 | disposition home or self-care (01) | DRG 750 ==
LOC: EMS 12:33 → 3EI 22:06 → UNDOADMIN 22:06 → B3A 22:06
DX: F25.1 Schizoaffective disorder, depressive type (principal); R45.851 Suicidal ideations; Z91.5 Personal history of self-harm; Z59.0 Homelessness; I10 Essential (primary) hypertension; M10.9 Gout, unspecified; F10.20 Alcohol dependence, uncomplicated; E87.6 Hypokalemia; F12.90 Cannabis use, unspecified, uncomplicated; Z79.899 Other long term (current) drug therapy; Y90.2 Blood alcohol level of 40-59 mg/100 ml; Z20.822 Contact with and (suspected) exposure to COVID-19
CPT/HCPCS: 84132; 87081; 87426; 99285; G0480; J3420

== ENCOUNTER 2021-06-09 21:45 | Inpatient (IN) | payer MEDICAID, OTHER ==
[~2021-06-09] VITALS: Ht 185.4 cm; Wt 106.6 kg
[~2021-06-09 21:45] MED LIST changes: -OLAN5TAB2 PO; +OLAN5TAB52 PO
[2021-06-09 22:24] LABS: BASOPHILS % (AUTO) 1.2 % (0.0-2.0); EOSINOPHILS % (AUTO) 1.6 % (1.0-6.0); HEMATOCRIT 41.8 % (41-53); HEMOGLOBIN 14.4 g/dL (13.5-17.5); LYMPHOCYTES # (AUTO) 2.3 K/uL (1.0-4.8); LYMPHOCYTES % (AUTO) 34.4 % (22.0-44.0); MEAN CORPUSCULAR HEMOGLOBIN 30.6 pg (26.0-34.0); MEAN CORPUSCULAR HGB CONC 34.4 G/dL (31.0-37.0); MEAN CORPUSCULAR VOLUME 89 fL (80-100); MONOCYTES # (AUTO) 0.6 K/uL (0.1-1.0); MONOCYTES % (AUTO) 8.6 % (2.0-9.0); NEUTROPHILS # (AUTO) 3.6 K/uL (1.8-7.7); NEUTROPHILS % (AUTO) 54.2 % (40.0-70.0); PLATELET COUNT (AUTO) 146 K/uL (150-450); RED BLOOD CELL COUNT(AUTO) 4.71 MIL/uL (4.50-5.90); RED CELL DISTRIBUTION WIDTH 16.5 % (11.5-14.5)
[2021-06-09 22:33] LABS: ANION GAP 12 mmol/L (8-16); CALCIUM, TOTAL 8.8 mg/dL (8.8-10.5); CARBON DIOXIDE 27 mmol/L (22-29); CHLORIDE 106 mmol/L (98-107); CREATININE 0.94 mg/dL (0.60-1.30); GLOMERULAR FILTR. RATE CALC > 60 mL/min (>60); GLUCOSE,RANDOM 141 mg/dL (70-110); POTASSIUM 3.3 mmol/L (3.5-5.1); SODIUM SERUM 145 mmol/L (136-145); UREA NITROGEN, BLOOD 9 mg/dL (7-18)
[2021-06-09 22:33] LABS: COVID AG,FIA SOURCE NASOPHARYNGEAL
[2021-06-09 22:38] LABS: ALANINE AMINOTRANSFERASE 36 U/L (12-78); ALBUMIN 3.7 g/dL (3.4-5.0); ALKALINE PHOSPHATASE 89 U/L (46-116); ASPARTATE AMINOTRANSFERASE 29 U/L (15-37); BILIRUBIN,TOTAL 0.4 mg/dL (0.1-1.0); TOTAL PROTEIN, SERUM 7.1 g/dL (6.4-8.2)
[2021-06-09] MEDS ORDERED: POTASSIUM CHLORIDE 20 MEQ ER TABLET PO ONE (22:45)
[2021-06-10] MEDS ORDERED: ZOLPIDEM TARTRATE 10 MG TABLET PO PRN (01:30)
[2021-06-10] MEDS ORDERED: LORazepam 2 MG TABLET PO PRN (01:30)
[2021-06-10] MEDS ORDERED: MAGNESIUM HYDROXIDE SUSPENSION 30 ML UDCUP PO PRN (08:45)
[2021-06-10] MEDS ORDERED: CloNIDine HCL 0.1 MG TABLET PO PRN (08:45)
[2021-06-10] MEDS ORDERED: ALBUTEROL SULFATE HFA 90 MCG/PUFF 8 GM INHALER IH PRN (08:45)
[2021-06-10] MEDS ORDERED: GuaiFENesin/D-METHORPHAN [SUGAR-FREE] 200-20MG/10 ML SYRUP UDCUP PO PRN (08:45)
[2021-06-10] MEDS ORDERED: ACETAMINOPHEN 325 MG TABLET PO PRN (08:45)
[2021-06-10] MEDS ORDERED: NICOTINE 14 MG/24 HOUR PATCH TD PRN (08:45)
[2021-06-10] MEDS ORDERED: IBUPROFEN 400 MG TABLET PO PRN (08:45)
[2021-06-10] MEDS ORDERED: DOCUSATE SODIUM 100 MG CAPSULE PO PRN (08:45)
[2021-06-10] MEDS ORDERED: PETROLATUM,WHITE 28 GM JELLY TP PRN (08:45)
[2021-06-10] MEDS ORDERED: ONDANSETRON HCL 4 MG TABLET PO PRN (08:45)
[2021-06-10] MEDS: AmLODIPine BESYLATE 2.5 MG TABLET PO SCH (10:30)
[2021-06-10] MEDS: ALLOPURINOL 300 MG TABLET PO SCH (10:30)
[2021-06-10] MEDS: LISINOPRIL 20 MG TABLET PO SCH (10:30)
[2021-06-10 13:44] LABS: APPEARANCE,URINE CLEAR (CLEAR); BILIRUBIN,URINE NEGATIVE (NEGATIVE); GLUCOSE, URINE (UA) NEGATIVE (NEGATIVE); KETONES,URINE NEGATIVE (NEGATIVE); LEUKOCYTE ESTERASE ,URINE NEGATIVE (NEGATIVE); NITRATE,URINE NEGATIVE (NEGATIVE); OCCULT BLOOD,URINE NEGATIVE (NEGATIVE); PROTEIN,URINE NEGATIVE (NEGATIVE)
[2021-06-10 13:49] LABS: AMPHET/METH SCREEN,URINE NEGATIVE (NEGATIVE); BARBITURATE SCREEN, URINE POSITIVE (NEGATIVE); BENZODIAZEPINES SCREEN,URINE POSITIVE (NEGATIVE); CANNABINOID SCREEN,URINE NEGATIVE (NEGATIVE); COCAINE SCREEN,URINE NEGATIVE (NEGATIVE); METHADONE SCREEN, URINE NEGATIVE (NEGATIVE); OPIATE SCREEN,URINE NEGATIVE (NEGATIVE)
[2021-06-10 13:51] LABS: PHENCYCLIDINE SCREEN,URINE NEGATIVE (NEGATIVE)
[2021-06-11] VITALS (8 sets, daily range): BP systolic 105–150; BP diastolic 59–95
[2021-06-11] MEDS ORDERED: PNEUMOCOCCAL VACCINE POLYVALENT 0.5 ML VIAL [PPSV23] IM. ONE (04:30)
[2021-06-11] MEDS ORDERED: INFLUENZA VIRUS VACCINE QVS 2021-22 (6MO+)/PF 60 MCG/0.5 ML SYRINGE IM. ONE (04:30)
[2021-06-11 06:53] LABS: CHOL/HDL RATIO 2.7 (4.2-7.3)
[2021-06-11] MEDS: AmLODIPine BESYLATE 2.5 MG TABLET PO SCH (09:06)
[2021-06-11] MEDS: ALLOPURINOL 300 MG TABLET PO SCH (09:06)
[2021-06-11] MEDS: LISINOPRIL 20 MG TABLET PO SCH (09:06)
[2021-06-11] MEDS ORDERED: LORazepam 2 MG TABLET PO PRN (11:45)
[2021-06-11] MEDS ORDERED: CYANOCOBALAMIN 1,000 MCG/ML VIAL IM ONE (11:45)
[2021-06-11] MEDS: OLANZapine 5 MG TABLET PO SCH (11:58)
[2021-06-11] MEDS: SERTRALINE HCL 50 MG TABLET PO SCH (11:58)
[2021-06-11] MEDS: FOLIC ACID 1 MG TABLET PO SCH (12:01)
[2021-06-11] MEDS: MULTIVITAMINS WITH MINERALS, THERAPEUTIC TABLET PO SCH (12:01)
[2021-06-11] MEDS: THIAMINE 100 MG TABLET PO SCH (16:26)
[2021-06-11] MEDS: TraZODone HCL 50 MG TABLET PO SCH (20:10)
[2021-06-11] MEDS: OLANZapine 10 MG TABLET PO SCH (20:10)
[2021-06-12 02:30] VITALS: BP 122/77
[2021-06-12 06:30] VITALS: BP 111/61
[2021-06-12] MEDS ORDERED: LORazepam 2 MG TABLET PO PRN (07:00)
[2021-06-12 08:35] VITALS: BP 109/60
[2021-06-12] MEDS: MULTIVITAMINS WITH MINERALS, THERAPEUTIC TABLET PO SCH (08:58)
[2021-06-12] MEDS: LISINOPRIL 20 MG TABLET PO SCH (08:58)
[2021-06-12] MEDS: LORazepam 2 MG TABLET PO SCH ×4 (09:00→20:08)
[2021-06-12] MEDS: OLANZapine 5 MG TABLET PO SCH (09:16)
[2021-06-12] MEDS: THIAMINE 100 MG TABLET PO SCH ×2 (09:16→16:22)
[2021-06-12] MEDS: SERTRALINE HCL 50 MG TABLET PO SCH (09:16)
[2021-06-12] MEDS: AmLODIPine BESYLATE 2.5 MG TABLET PO SCH (09:17)
[2021-06-12] MEDS: FOLIC ACID 1 MG TABLET PO SCH (09:17)
[2021-06-12] MEDS: ALLOPURINOL 300 MG TABLET PO SCH (09:34)
[2021-06-12 12:04] VITALS: BP 114/72
[2021-06-12 16:00] VITALS: BP 115/65
[2021-06-12] MEDS: OLANZapine 10 MG TABLET PO SCH (20:07)
[2021-06-12] MEDS: TraZODone HCL 50 MG TABLET PO SCH (20:23)
[2021-06-13 08:05] VITALS: BP 142/75
[2021-06-13] MEDS: LISINOPRIL 20 MG TABLET PO SCH (08:50)
[2021-06-13] MEDS: LORazepam 2 MG TABLET PO SCH ×4 (08:50→20:36)
[2021-06-13] MEDS: SERTRALINE HCL 50 MG TABLET PO SCH (08:50)
[2021-06-13] MEDS: OLANZapine 5 MG TABLET PO SCH (08:50)
[2021-06-13] MEDS: FOLIC ACID 1 MG TABLET PO SCH (08:51)
[2021-06-13] MEDS: MULTIVITAMINS WITH MINERALS, THERAPEUTIC TABLET PO SCH (08:51)
[2021-06-13] MEDS: AmLODIPine BESYLATE 2.5 MG TABLET PO SCH (08:51)
[2021-06-13] MEDS: THIAMINE 100 MG TABLET PO SCH ×2 (08:51→16:10)
[2021-06-13 09:00] VITALS: BP 142/75
[2021-06-13] MEDS: ALLOPURINOL 300 MG TABLET PO SCH (09:00)
[2021-06-13 16:00] VITALS: BP 123/84
[2021-06-13 16:37] VITALS: BP 123/84
[2021-06-13] MEDS: TraZODone HCL 50 MG TABLET PO SCH (20:36)
[2021-06-13] MEDS: OLANZapine 10 MG TABLET PO SCH (20:36)
[2021-06-14 05:56] VITALS: BP 138/87
[2021-06-14] MEDS ORDERED: LORazepam 1 MG TABLET PO PRN (07:00)
[2021-06-14 08:08] VITALS: BP 139/99
[2021-06-14] MEDS: AmLODIPine BESYLATE 2.5 MG TABLET PO SCH (08:37)
[2021-06-14] MEDS: MULTIVITAMINS WITH MINERALS, THERAPEUTIC TABLET PO SCH (08:38)
[2021-06-14] MEDS: ALLOPURINOL 300 MG TABLET PO SCH (08:38)
[2021-06-14] MEDS: OLANZapine 5 MG TABLET PO SCH (08:38)
[2021-06-14] MEDS: LORazepam 1 MG TABLET PO SCH ×4 (08:39→20:41)
[2021-06-14] MEDS: SERTRALINE HCL 50 MG TABLET PO SCH (08:40)
[2021-06-14] MEDS: FOLIC ACID 1 MG TABLET PO SCH (08:40)
[2021-06-14] MEDS: LISINOPRIL 20 MG TABLET PO SCH (08:40)
[2021-06-14] MEDS: THIAMINE 100 MG TABLET PO SCH ×2 (08:40→16:15)
[2021-06-14 16:12] VITALS: BP 131/72
[2021-06-14 16:50] VITALS: BP 131/72
[2021-06-14] MEDS: OLANZapine 10 MG TABLET PO SCH (20:40)
[2021-06-14] MEDS: TraZODone HCL 50 MG TABLET PO SCH (20:41)
[2021-06-15 06:22] VITALS: BP 122/70
[2021-06-15 06:23] VITALS: BP 122/70
[2021-06-15 08:15] VITALS: BP 111/56
[2021-06-15 08:28] LABS: COVID AG,FIA SOURCE NASAL SWAB
[2021-06-15] MEDS: ALLOPURINOL 300 MG TABLET PO SCH (08:52)
[2021-06-15] MEDS: FOLIC ACID 1 MG TABLET PO SCH (08:52)
[2021-06-15] MEDS: THIAMINE 100 MG TABLET PO SCH ×2 (08:52→16:11)
[2021-06-15] MEDS: OLANZapine 5 MG TABLET PO SCH (08:52)
[2021-06-15] MEDS: SERTRALINE HCL 50 MG TABLET PO SCH (08:52)
[2021-06-15] MEDS: MULTIVITAMINS WITH MINERALS, THERAPEUTIC TABLET PO SCH (08:52)
[2021-06-15] MEDS: LORazepam 1 MG TABLET PO PRN ×2 (08:53→15:00)
[2021-06-15] MEDS: LISINOPRIL 20 MG TABLET PO SCH (08:53)
[2021-06-15] MEDS: AmLODIPine BESYLATE 2.5 MG TABLET PO SCH (09:00)
[2021-06-15 16:07] VITALS: BP 121/86
[2021-06-15 17:16] VITALS: BP 121/86
[2021-06-15] MEDS: TraZODone HCL 50 MG TABLET PO SCH (20:07)
[2021-06-15] MEDS: OLANZapine 7.5 MG TABLET PO SCH (20:08)
[2021-06-16 08:00] VITALS: BP 116/61
[2021-06-16] MEDS: FOLIC ACID 1 MG TABLET PO SCH (11:10)
[2021-06-16] MEDS: OLANZapine 10 MG TABLET PO SCH (11:10)
[2021-06-16] MEDS: ALLOPURINOL 300 MG TABLET PO SCH (11:10)
[2021-06-16] MEDS: MULTIVITAMINS WITH MINERALS, THERAPEUTIC TABLET PO SCH (11:10)
[2021-06-16] MEDS: SERTRALINE HCL 100 MG TABLET PO SCH (11:11)
[2021-06-16] MEDS: THIAMINE 100 MG TABLET PO SCH ×2 (11:11→16:04)
[2021-06-16] MEDS: AmLODIPine BESYLATE 2.5 MG TABLET PO SCH (11:11)
[2021-06-16] MEDS: LISINOPRIL 20 MG TABLET PO SCH ×2 (11:11→16:05)
[2021-06-16 16:06] VITALS: BP 103/60
[2021-06-16] MEDS: OLANZapine 7.5 MG TABLET PO SCH (20:40)
[2021-06-16] MEDS: TraZODone HCL 50 MG TABLET PO SCH (20:41)
[2021-06-17] MEDS: OLANZapine 10 MG TABLET PO SCH (08:39)
[2021-06-17] MEDS: ALLOPURINOL 300 MG TABLET PO SCH (08:39)
[2021-06-17] MEDS: FOLIC ACID 1 MG TABLET PO SCH (08:39)
[2021-06-17] MEDS: SERTRALINE HCL 100 MG TABLET PO SCH (08:39)
[2021-06-17] MEDS: THIAMINE 100 MG TABLET PO SCH ×2 (08:39→16:25)
[2021-06-17] MEDS: AmLODIPine BESYLATE 2.5 MG TABLET PO SCH (08:39)
[2021-06-17] MEDS: MULTIVITAMINS WITH MINERALS, THERAPEUTIC TABLET PO SCH (08:39)
[2021-06-17] MEDS: HALOPERIDOL 5 MG TABLET PO PRN (10:13)
[2021-06-17 10:18] VITALS: BP 149/86
[2021-06-17 16:53] VITALS: BP 125/63
[2021-06-17] MEDS: TraZODone HCL 50 MG TABLET PO SCH (20:24)
[2021-06-17] MEDS: OLANZapine 7.5 MG TABLET PO SCH (20:24)
[2021-06-18] MEDS: AmLODIPine BESYLATE 2.5 MG TABLET PO SCH (08:07)
[2021-06-18] MEDS: FOLIC ACID 1 MG TABLET PO SCH (08:07)
[2021-06-18] MEDS: OLANZapine 10 MG TABLET PO SCH (08:07)
[2021-06-18] MEDS: MULTIVITAMINS WITH MINERALS, THERAPEUTIC TABLET PO SCH (08:07)
[2021-06-18] MEDS: SERTRALINE HCL 100 MG TABLET PO SCH (08:07)
[2021-06-18] MEDS: THIAMINE 100 MG TABLET PO SCH ×2 (08:08→16:49)
[2021-06-18] MEDS: ALLOPURINOL 300 MG TABLET PO SCH (08:08)
[2021-06-18] MEDS: LISINOPRIL 20 MG TABLET PO SCH (08:08)
[2021-06-18 08:57] VITALS: BP 123/73
[2021-06-18 16:04] VITALS: BP 137/90
[2021-06-18] MEDS: HALOPERIDOL 5 MG TABLET PO PRN (16:11)
[2021-06-18] MEDS: TraZODone HCL 50 MG TABLET PO SCH (20:42)
[2021-06-18] MEDS: OLANZapine 7.5 MG TABLET PO SCH (20:43)
[2021-06-19] MEDS: FOLIC ACID 1 MG TABLET PO SCH (08:39)
[2021-06-19] MEDS: MULTIVITAMINS WITH MINERALS, THERAPEUTIC TABLET PO SCH (08:39)
[2021-06-19] MEDS: AmLODIPine BESYLATE 2.5 MG TABLET PO SCH (08:39)
[2021-06-19] MEDS: LISINOPRIL 20 MG TABLET PO SCH (08:39)
[2021-06-19] MEDS: SERTRALINE HCL 100 MG TABLET PO SCH (08:39)
[2021-06-19] MEDS: ALLOPURINOL 300 MG TABLET PO SCH (08:39)
[2021-06-19] MEDS: THIAMINE 100 MG TABLET PO SCH ×2 (08:39→15:57)
[2021-06-19] MEDS: OLANZapine 10 MG TABLET PO SCH (08:39)
[2021-06-19 09:00] VITALS: BP 135/85
[2021-06-19] MEDS: HALOPERIDOL 5 MG TABLET PO PRN (15:58)
[2021-06-19 16:16] VITALS: BP 140/79
[2021-06-19] MEDS: OLANZapine 7.5 MG TABLET PO SCH (20:25)
[2021-06-19] MEDS: TraZODone HCL 50 MG TABLET PO SCH (20:25)
[2021-06-20] MEDS: THIAMINE 100 MG TABLET PO SCH ×2 (08:13→16:29)
[2021-06-20] MEDS: SERTRALINE HCL 100 MG TABLET PO SCH (08:13)
[2021-06-20] MEDS: ALLOPURINOL 300 MG TABLET PO SCH (08:13)
[2021-06-20] MEDS: OLANZapine 10 MG TABLET PO SCH (08:13)
[2021-06-20] MEDS: AmLODIPine BESYLATE 2.5 MG TABLET PO SCH (08:14)
[2021-06-20] MEDS: LISINOPRIL 20 MG TABLET PO SCH (08:14)
[2021-06-20] MEDS: MULTIVITAMINS WITH MINERALS, THERAPEUTIC TABLET PO SCH (08:14)
[2021-06-20] MEDS: FOLIC ACID 1 MG TABLET PO SCH (08:14)
[2021-06-20 09:00] VITALS: BP 141/93
[2021-06-20 16:22] VITALS: BP 110/80
[2021-06-20] MEDS: HALOPERIDOL 5 MG TABLET PO PRN (17:03)
[2021-06-20] MEDS: TraZODone HCL 50 MG TABLET PO SCH (20:34)
[2021-06-20] MEDS: OLANZapine 7.5 MG TABLET PO SCH (20:34)
[2021-06-21 08:05] VITALS: BP 135/81
[2021-06-21] MEDS: OLANZapine 10 MG TABLET PO SCH (09:07)
[2021-06-21] MEDS: THIAMINE 100 MG TABLET PO SCH (09:08)
[2021-06-21] MEDS: ALLOPURINOL 300 MG TABLET PO SCH (09:08)
[2021-06-21] MEDS: LISINOPRIL 20 MG TABLET PO SCH (09:08)
[2021-06-21] MEDS: SERTRALINE HCL 100 MG TABLET PO SCH (09:08)
[2021-06-21] MEDS: MULTIVITAMINS WITH MINERALS, THERAPEUTIC TABLET PO SCH (09:08)
[2021-06-21] MEDS: AmLODIPine BESYLATE 2.5 MG TABLET PO SCH (09:08)
[2021-06-21 16:00] VITALS: BP 133/83
[2021-06-21] MEDS: TraZODone HCL 50 MG TABLET PO SCH (20:22)
[2021-06-21] MEDS: OLANZapine 7.5 MG TABLET PO SCH (20:22)
[2021-06-22 08:10] VITALS: BP 141/98
[2021-06-22] MEDS: OLANZapine 10 MG TABLET PO SCH (10:27)
[2021-06-22] MEDS: MULTIVITAMINS WITH MINERALS, THERAPEUTIC TABLET PO SCH (10:27)
[2021-06-22] MEDS: SERTRALINE HCL 100 MG TABLET PO SCH (10:27)
[2021-06-22] MEDS: LISINOPRIL 20 MG TABLET PO SCH (10:27)
[2021-06-22] MEDS: AmLODIPine BESYLATE 2.5 MG TABLET PO SCH (10:27)
[2021-06-22] MEDS: ALLOPURINOL 300 MG TABLET PO SCH (10:28)
[2021-06-22 11:19] LABS: COVID AG,FIA SOURCE NASOPHARYNGEAL
[2021-06-22 16:03] VITALS: BP 140/62
[2021-06-22] MEDS: TraZODone HCL 50 MG TABLET PO SCH (20:28)
[2021-06-22] MEDS: OLANZapine 7.5 MG TABLET PO SCH (20:28)
[2021-06-23] MEDS: ALLOPURINOL 300 MG TABLET PO SCH (08:20)
[2021-06-23] MEDS: LISINOPRIL 20 MG TABLET PO SCH (08:20)
[2021-06-23] MEDS: MULTIVITAMINS WITH MINERALS, THERAPEUTIC TABLET PO SCH (08:20)
[2021-06-23] MEDS: OLANZapine 10 MG TABLET PO SCH (08:20)
[2021-06-23] MEDS: SERTRALINE HCL 100 MG TABLET PO SCH (08:21)
[2021-06-23] MEDS: AmLODIPine BESYLATE 2.5 MG TABLET PO SCH (08:21)
[2021-06-23 08:49] VITALS: BP 148/88
[2021-06-23 16:01] VITALS: BP 128/73
[2021-06-23] MEDS: TraZODone HCL 50 MG TABLET PO SCH (20:26)
[2021-06-23] MEDS: OLANZapine 7.5 MG TABLET PO SCH (20:26)
[2021-06-24] MEDS: OLANZapine 10 MG TABLET PO SCH (08:18)
[2021-06-24] MEDS: MULTIVITAMINS WITH MINERALS, THERAPEUTIC TABLET PO SCH (08:18)
[2021-06-24] MEDS: ALLOPURINOL 300 MG TABLET PO SCH (08:18)
[2021-06-24] MEDS: LISINOPRIL 20 MG TABLET PO SCH (08:18)
[2021-06-24] MEDS: SERTRALINE HCL 100 MG TABLET PO SCH (08:18)
[2021-06-24] MEDS: AmLODIPine BESYLATE 2.5 MG TABLET PO SCH (08:18)
[2021-06-24 09:30] VITALS: BP 158/94
[2021-06-24 16:15] VITALS: BP 150/83
[2021-06-24] MEDS: TraZODone HCL 50 MG TABLET PO SCH (20:22)
[2021-06-24] MEDS: OLANZapine 7.5 MG TABLET PO SCH (20:23)
[2021-06-25 08:05] VITALS: BP 138/92
[2021-06-25] MEDS: SERTRALINE HCL 100 MG TABLET PO SCH (11:16)
[2021-06-25] MEDS: MULTIVITAMINS WITH MINERALS, THERAPEUTIC TABLET PO SCH (11:16)
[2021-06-25] MEDS: LISINOPRIL 20 MG TABLET PO SCH (11:17)
[2021-06-25] MEDS: ALLOPURINOL 300 MG TABLET PO SCH (11:17)
[2021-06-25] MEDS: AmLODIPine BESYLATE 2.5 MG TABLET PO SCH (11:17)
[2021-06-25] MEDS: OLANZapine 10 MG TABLET PO SCH (11:17)
[2021-06-25 16:06] VITALS: BP 107/69
[2021-06-25] MEDS: OLANZapine 7.5 MG TABLET PO SCH (20:12)
[2021-06-25] MEDS: TraZODone HCL 50 MG TABLET PO SCH (20:12)
[2021-06-26 08:59] VITALS: BP 147/103
[2021-06-26] MEDS: LISINOPRIL 20 MG TABLET PO SCH (09:03)
[2021-06-26] MEDS: OLANZapine 10 MG TABLET PO SCH (09:03)
[2021-06-26] MEDS: ALLOPURINOL 300 MG TABLET PO SCH (09:03)
[2021-06-26] MEDS: SERTRALINE HCL 100 MG TABLET PO SCH (09:04)
[2021-06-26] MEDS: MULTIVITAMINS WITH MINERALS, THERAPEUTIC TABLET PO SCH (09:04)
[2021-06-26] MEDS: AmLODIPine BESYLATE 2.5 MG TABLET PO SCH (09:04)
[2021-06-26] MEDS: HALOPERIDOL 5 MG TABLET PO PRN (09:05)
[2021-06-26 16:00] VITALS: BP 115/78
[2021-06-26] MEDS: OLANZapine 7.5 MG TABLET PO SCH (20:00)
[2021-06-26] MEDS: TraZODone HCL 50 MG TABLET PO SCH (20:00)
[2021-06-27 08:29] VITALS: BP 117/68
[2021-06-27] MEDS: MULTIVITAMINS WITH MINERALS, THERAPEUTIC TABLET PO SCH (09:19)
[2021-06-27] MEDS: AmLODIPine BESYLATE 2.5 MG TABLET PO SCH (09:19)
[2021-06-27] MEDS: SERTRALINE HCL 100 MG TABLET PO SCH (09:19)
[2021-06-27] MEDS: LISINOPRIL 20 MG TABLET PO SCH (09:19)
[2021-06-27] MEDS: OLANZapine 10 MG TABLET PO SCH (09:19)
[2021-06-27] MEDS: ALLOPURINOL 300 MG TABLET PO SCH (09:19)
[2021-06-27] MEDS: HALOPERIDOL 5 MG TABLET PO PRN (17:12)
[2021-06-27 18:45] VITALS: BP 122/71
[2021-06-27] MEDS: OLANZapine 7.5 MG TABLET PO SCH (20:02)
[2021-06-27] MEDS: TraZODone HCL 50 MG TABLET PO SCH (20:02)
[2021-06-28] MEDS: MAG HYDROX/AL HYDROX/SIMETH ES 30 ML SUSPENSION UDCUP PO PRN (06:33)
[2021-06-28 08:17] VITALS: BP 137/89
[2021-06-28] MEDS: LISINOPRIL 20 MG TABLET PO SCH (08:37)
[2021-06-28] MEDS: MULTIVITAMINS WITH MINERALS, THERAPEUTIC TABLET PO SCH (08:37)
[2021-06-28] MEDS: ALLOPURINOL 300 MG TABLET PO SCH (08:37)
[2021-06-28] MEDS: AmLODIPine BESYLATE 2.5 MG TABLET PO SCH (08:37)
[2021-06-28] MEDS: SERTRALINE HCL 100 MG TABLET PO SCH (08:37)
[2021-06-28] MEDS: OLANZapine 10 MG TABLET PO SCH (08:37)
[2021-06-28 16:04] VITALS: BP 111/76
[2021-06-28] MEDS: HALOPERIDOL 5 MG TABLET PO PRN (17:05)
[2021-06-28] MEDS: TraZODone HCL 50 MG TABLET PO SCH (20:46)
[2021-06-28] MEDS: OLANZapine 7.5 MG TABLET PO SCH (20:49)
[2021-06-29 07:53] LABS: COVID AG,FIA SOURCE NASAL SWAB
[2021-06-29] MEDS: OLANZapine 10 MG TABLET PO SCH (07:58)
[2021-06-29] MEDS: LISINOPRIL 20 MG TABLET PO SCH (07:58)
[2021-06-29] MEDS: SERTRALINE HCL 100 MG TABLET PO SCH (07:58)
[2021-06-29] MEDS: MULTIVITAMINS WITH MINERALS, THERAPEUTIC TABLET PO SCH (07:58)
[2021-06-29] MEDS: AmLODIPine BESYLATE 2.5 MG TABLET PO SCH (07:58)
[2021-06-29] MEDS: ALLOPURINOL 300 MG TABLET PO SCH (07:58)
[2021-06-29 08:45] VITALS: BP 113/69
[2021-06-29] MEDS: MAG HYDROX/AL HYDROX/SIMETH ES 30 ML SUSPENSION UDCUP PO PRN (14:26)
[2021-06-29] MEDS: HALOPERIDOL 5 MG TABLET PO PRN ×2 (14:26→22:28)
[2021-06-29] MEDS: LOPERAMIDE HCL 2 MG CAPSULE PO PRN (14:28)
[2021-06-29 16:30] VITALS: BP 154/78
[2021-06-29] MEDS ORDERED: ONDANSETRON HCL 4 MG/2 ML VIAL IM PRN (18:00)
[2021-06-29] MEDS ORDERED: BARIUM SULFATE 0.1% SUSPENSION 450 ML BOTTLE ONE (18:58)
[2021-06-29] MEDS: OLANZapine 7.5 MG TABLET PO SCH (22:28)
[2021-06-29] MEDS: TraZODone HCL 50 MG TABLET PO SCH (22:28)
[2021-06-30] MEDS: LISINOPRIL 20 MG TABLET PO SCH (08:53)
[2021-06-30] MEDS: OLANZapine 10 MG TABLET PO SCH (08:53)
[2021-06-30] MEDS: ALLOPURINOL 300 MG TABLET PO SCH (08:53)
[2021-06-30] MEDS: MULTIVITAMINS WITH MINERALS, THERAPEUTIC TABLET PO SCH (08:53)
[2021-06-30] MEDS: AmLODIPine BESYLATE 2.5 MG TABLET PO SCH (08:53)
[2021-06-30] MEDS: SERTRALINE HCL 100 MG TABLET PO SCH (08:54)
[2021-06-30] MEDS: HALOPERIDOL 5 MG TABLET PO PRN ×2 (08:55→16:55)
[2021-06-30 16:37] VITALS: BP 130/78
[2021-06-30] MEDS: LOPERAMIDE HCL 2 MG CAPSULE PO PRN (19:23)
[2021-06-30] MEDS: OLANZapine 7.5 MG TABLET PO SCH (20:03)
[2021-06-30] MEDS: TraZODone HCL 50 MG TABLET PO SCH (20:03)
[2021-07-01 08:00] VITALS: BP 114/61
[2021-07-01] MEDS: LISINOPRIL 20 MG TABLET PO SCH (10:09)
[2021-07-01] MEDS: OLANZapine 10 MG TABLET PO SCH (10:09)
[2021-07-01] MEDS: SERTRALINE HCL 100 MG TABLET PO SCH (10:09)
[2021-07-01] MEDS: ALLOPURINOL 300 MG TABLET PO SCH (10:10)
[2021-07-01] MEDS: AmLODIPine BESYLATE 2.5 MG TABLET PO SCH (10:10)
[2021-07-01] MEDS: MULTIVITAMINS WITH MINERALS, THERAPEUTIC TABLET PO SCH (10:10)
[2021-07-01] MEDS: HALOPERIDOL 5 MG TABLET PO PRN (11:32)
[2021-07-01 16:00] VITALS: BP 116/71
[2021-07-01] MEDS: OLANZapine 7.5 MG TABLET PO SCH (20:24)
[2021-07-01] MEDS: TraZODone HCL 50 MG TABLET PO SCH (20:24)
[2021-07-02] MEDS: MULTIVITAMINS WITH MINERALS, THERAPEUTIC TABLET PO SCH (08:59)
[2021-07-02] MEDS: LISINOPRIL 20 MG TABLET PO SCH (08:59)
[2021-07-02] MEDS: SERTRALINE HCL 100 MG TABLET PO SCH (08:59)
[2021-07-02] MEDS: ALLOPURINOL 300 MG TABLET PO SCH (08:59)
[2021-07-02] MEDS: AmLODIPine BESYLATE 2.5 MG TABLET PO SCH (08:59)
[2021-07-02] MEDS: OLANZapine 10 MG TABLET PO SCH (08:59)
[2021-07-02 09:08] VITALS: BP 112/62
[2021-07-02 16:00] VITALS: BP 112/79
[2021-07-02] MEDS: TraZODone HCL 50 MG TABLET PO SCH (20:11)
[2021-07-02] MEDS: OLANZapine 7.5 MG TABLET PO SCH (20:11)
[2021-07-03 08:11] VITALS: BP 151/85
[2021-07-03 08:16] VITALS: BP 151/85
[2021-07-03] MEDS: OLANZapine 10 MG TABLET PO SCH (09:35)
[2021-07-03] MEDS: MULTIVITAMINS WITH MINERALS, THERAPEUTIC TABLET PO SCH (09:35)
[2021-07-03] MEDS: LISINOPRIL 20 MG TABLET PO SCH (09:35)
[2021-07-03] MEDS: AmLODIPine BESYLATE 2.5 MG TABLET PO SCH (09:35)
[2021-07-03] MEDS: SERTRALINE HCL 100 MG TABLET PO SCH (09:35)
[2021-07-03] MEDS: ALLOPURINOL 300 MG TABLET PO SCH (09:35)
[2021-07-03 16:20] VITALS: BP 127/75
[2021-07-03] MEDS: TraZODone HCL 50 MG TABLET PO SCH (20:25)
[2021-07-03] MEDS: OLANZapine 7.5 MG TABLET PO SCH (20:25)
[2021-07-04 08:00] VITALS: BP 105/62
[2021-07-04] MEDS: MULTIVITAMINS WITH MINERALS, THERAPEUTIC TABLET PO SCH (08:55)
[2021-07-04] MEDS: SERTRALINE HCL 100 MG TABLET PO SCH (08:55)
[2021-07-04] MEDS: AmLODIPine BESYLATE 2.5 MG TABLET PO SCH (08:55)
[2021-07-04] MEDS: LISINOPRIL 20 MG TABLET PO SCH (08:55)
[2021-07-04] MEDS: OLANZapine 10 MG TABLET PO SCH (08:55)
[2021-07-04] MEDS: ALLOPURINOL 300 MG TABLET PO SCH (08:56)
[2021-07-04 16:04] VITALS: BP 133/79
[2021-07-04 16:12] VITALS: BP 133/79
[2021-07-04] MEDS: OLANZapine 7.5 MG TABLET PO SCH (20:27)
[2021-07-04] MEDS: TraZODone HCL 50 MG TABLET PO SCH (20:27)
[2021-07-05 08:00] VITALS: BP 122/79
[2021-07-05] MEDS: MULTIVITAMINS WITH MINERALS, THERAPEUTIC TABLET PO SCH (08:27)
[2021-07-05] MEDS: OLANZapine 10 MG TABLET PO SCH (08:27)
[2021-07-05] MEDS: SERTRALINE HCL 100 MG TABLET PO SCH (08:27)
[2021-07-05] MEDS: AmLODIPine BESYLATE 2.5 MG TABLET PO SCH (08:27)
[2021-07-05] MEDS: ALLOPURINOL 300 MG TABLET PO SCH (08:28)
[2021-07-05] MEDS: LISINOPRIL 20 MG TABLET PO SCH (08:28)
[2021-07-05 16:22] VITALS: BP 131/75
[2021-07-05] MEDS: OLANZapine 7.5 MG TABLET PO SCH (20:36)
[2021-07-05] MEDS: TraZODone HCL 50 MG TABLET PO SCH (20:36)
[2021-07-06 08:06] VITALS: BP 115/60
[2021-07-06] MEDS: ALLOPURINOL 300 MG TABLET PO SCH (08:24)
[2021-07-06] MEDS: LISINOPRIL 20 MG TABLET PO SCH (08:24)
[2021-07-06] MEDS: MULTIVITAMINS WITH MINERALS, THERAPEUTIC TABLET PO SCH (08:24)
[2021-07-06] MEDS: AmLODIPine BESYLATE 2.5 MG TABLET PO SCH (08:24)
[2021-07-06] MEDS: OLANZapine 10 MG TABLET PO SCH (08:24)
[2021-07-06] MEDS: SERTRALINE HCL 100 MG TABLET PO SCH (08:24)
[2021-07-06 14:15] LABS: COVID AG,FIA SOURCE NASOPHARYNGEAL
[2021-07-06 16:12] VITALS: BP 125/76
[2021-07-06] MEDS: OLANZapine 7.5 MG TABLET PO SCH (20:26)
[2021-07-06] MEDS: TraZODone HCL 50 MG TABLET PO SCH (20:26)
[2021-07-07 08:30] VITALS: BP 121/75
[2021-07-07] MEDS: SERTRALINE HCL 100 MG TABLET PO SCH (08:39)
[2021-07-07] MEDS: ALLOPURINOL 300 MG TABLET PO SCH (08:39)
[2021-07-07] MEDS: LISINOPRIL 20 MG TABLET PO SCH (08:39)
[2021-07-07] MEDS: OLANZapine 10 MG TABLET PO SCH (08:39)
[2021-07-07] MEDS: AmLODIPine BESYLATE 2.5 MG TABLET PO SCH (08:39)
[2021-07-07] MEDS: MULTIVITAMINS WITH MINERALS, THERAPEUTIC TABLET PO SCH (08:39)
[2021-07-07 16:00] VITALS: BP 112/51
[2021-07-07] MEDS: OLANZapine 7.5 MG TABLET PO SCH (20:45)
[2021-07-07] MEDS: TraZODone HCL 50 MG TABLET PO SCH (20:45)
[2021-07-08 08:22] VITALS: BP 116/73
[2021-07-08] MEDS: OLANZapine 10 MG TABLET PO SCH (08:23)
[2021-07-08] MEDS: SERTRALINE HCL 100 MG TABLET PO SCH (08:23)
[2021-07-08] MEDS: ALLOPURINOL 300 MG TABLET PO SCH (08:23)
[2021-07-08] MEDS: MULTIVITAMINS WITH MINERALS, THERAPEUTIC TABLET PO SCH (08:23)
[2021-07-08] MEDS: LISINOPRIL 20 MG TABLET PO SCH (08:23)
[2021-07-08] MEDS: AmLODIPine BESYLATE 2.5 MG TABLET PO SCH (08:23)
[2021-07-08 16:00] VITALS: BP 99/55
[2021-07-08] MEDS: OLANZapine 7.5 MG TABLET PO SCH (20:12)
[2021-07-08] MEDS: TraZODone HCL 50 MG TABLET PO SCH (20:12)
[2021-07-09 08:22] VITALS: BP_SYST 145; BP_SYST 160; BP_DIAS 80; BP_DIAS 91
[2021-07-09] MEDS: SERTRALINE HCL 100 MG TABLET PO SCH (08:47)
[2021-07-09] MEDS: AmLODIPine BESYLATE 2.5 MG TABLET PO SCH (08:47)
[2021-07-09] MEDS: LISINOPRIL 20 MG TABLET PO SCH (08:47)
[2021-07-09] MEDS: MULTIVITAMINS WITH MINERALS, THERAPEUTIC TABLET PO SCH (08:47)
[2021-07-09] MEDS: OLANZapine 10 MG TABLET PO SCH (08:47)
[2021-07-09] MEDS: ALLOPURINOL 300 MG TABLET PO SCH (08:48)
[2021-07-09 16:00] VITALS: BP 114/56
[2021-07-09 16:22] VITALS: BP 114/60
[2021-07-09] MEDS: OLANZapine 7.5 MG TABLET PO SCH (20:20)
[2021-07-09] MEDS: TraZODone HCL 50 MG TABLET PO SCH (20:20)
[2021-07-10 08:48] VITALS: BP 148/93
[2021-07-10] MEDS: ALLOPURINOL 300 MG TABLET PO SCH (08:59)
[2021-07-10] MEDS: AmLODIPine BESYLATE 2.5 MG TABLET PO SCH (08:59)
[2021-07-10] MEDS: MULTIVITAMINS WITH MINERALS, THERAPEUTIC TABLET PO SCH (08:59)
[2021-07-10] MEDS: SERTRALINE HCL 100 MG TABLET PO SCH (08:59)
[2021-07-10] MEDS: OLANZapine 10 MG TABLET PO SCH (08:59)
[2021-07-10] MEDS: LISINOPRIL 20 MG TABLET PO SCH (08:59)
[2021-07-10 16:23] VITALS: BP 143/88
[2021-07-10] MEDS: OLANZapine 7.5 MG TABLET PO SCH (20:21)
[2021-07-10] MEDS: TraZODone HCL 50 MG TABLET PO SCH (20:21)
[2021-07-11 07:20] VITALS: BP 135/81
[2021-07-11 07:27] VITALS: BP 135/81
[2021-07-11] MEDS: LISINOPRIL 20 MG TABLET PO SCH (07:28)
[2021-07-11] MEDS: OLANZapine 10 MG TABLET PO SCH (07:29)
[2021-07-11] MEDS: AmLODIPine BESYLATE 2.5 MG TABLET PO SCH (07:29)
[2021-07-11] MEDS: MULTIVITAMINS WITH MINERALS, THERAPEUTIC TABLET PO SCH (07:29)
[2021-07-11] MEDS: SERTRALINE HCL 100 MG TABLET PO SCH (07:29)
[2021-07-11] MEDS: ALLOPURINOL 300 MG TABLET PO SCH (07:29)
[2021-07-11] MEDS ORDERED: OLAN10 PO (17:39)
[2021-07-11] MEDS ORDERED: TRAZ-252 PO (17:39)
[2021-07-11] MEDS ORDERED: OLAN7.5T22 PO (17:39)
[2021-07-11] MEDS ORDERED: SERT-440 PO (17:39)
== END 2021-07-11 07:35 | disposition home or self-care (01) | DRG 750 ==
LOC: EMS 21:46 → 3EI 06-11 00:16
PROVIDERS: ADMIT Psychiatry & Neurology Psychiatry; ATTEND Psychiatry & Neurology Psychiatry
DX: F25.1 Schizoaffective disorder, depressive type (principal); R45.851 Suicidal ideations; Z59.00 Homelessness unspecified; E87.6 Hypokalemia; F10.10 Alcohol abuse, uncomplicated; Y90.0 Blood alcohol level of less than 20 mg/100 ml; I10 Essential (primary) hypertension; Z20.822 Contact with and (suspected) exposure to COVID-19; F13.10 Sedative, hypnotic or anxiolytic abuse, uncomplicated; K59.00 Constipation, unspecified; M10.9 Gout, unspecified; Z79.899 Other long term (current) drug therapy; Z91.51 Personal history of suicidal behavior; Z71.41 Alcohol abuse counseling and surveillance of alcoholic; Z71.51 Drug abuse counseling and surveillance of drug abuser
CPT/HCPCS: 74019; 74176; 80053; 80061; 81003; 83036; 84132; 85025; 87081; 99285; G0480; J2405; J3420; Q9967

== ENCOUNTER 2022-03-08 15:06 | Inpatient (IN) | payer MEDICAID, OTHER ==
[~2022-03-08] VITALS: Ht 185.4 cm; Wt 110.2 kg
[~2022-03-08 15:06] MED LIST changes: +OLAN10 PO; +OLAN7.5T22 PO; +SERT-440 PO; +TRAZ-252 PO
[2022-03-08 15:30] LABS: BASOPHILS % (AUTO) 0.9 % (0.0-2.0); HEMATOCRIT 47.4 % (41-53); HEMOGLOBIN 15.6 g/dL (13.5-17.5); LYMPHOCYTES # (AUTO) 2.7 K/uL (1.0-4.8); LYMPHOCYTES % (AUTO) 34.7 % (22.0-44.0); MEAN CORPUSCULAR HEMOGLOBIN 27.9 pg (26.0-34.0); MEAN CORPUSCULAR HGB CONC 32.9 G/dL (31.0-37.0); MEAN CORPUSCULAR VOLUME 85 fL (80-100); MONOCYTES # (AUTO) 0.5 K/uL (0.1-1.0); MONOCYTES % (AUTO) 6.8 % (2.0-9.0); NEUTROPHILS # (AUTO) 4.3 K/uL (1.8-7.7); NEUTROPHILS % (AUTO) 55.6 % (40.0-70.0); PLATELET COUNT (AUTO) 266 K/uL (150-450); RED CELL DISTRIBUTION WIDTH 17.8 % (11.5-14.5)
[2022-03-08] MEDS ORDERED: SODIUM CHLORIDE 0.9% 1,000 ML IV ONE (15:30)
[2022-03-08 15:39] LABS: ANION GAP 21 mmol/L (8-16); CALCIUM, TOTAL 9.2 mg/dL (8.8-10.5); CARBON DIOXIDE 20 mmol/L (22-29); CHLORIDE 103 mmol/L (98-107); GLUCOSE,RANDOM 123 mg/dL (70-110); POTASSIUM 3.8 mmol/L (3.5-5.1); SODIUM SERUM 144 mmol/L (136-145); UREA NITROGEN, BLOOD 12 mg/dL (7-18)
[2022-03-08 15:40] LABS: GLOMERULAR FILTR. RATE CALC > 60 mL/min (>60)
[2022-03-08 15:54] LABS: ALANINE AMINOTRANSFERASE 30 U/L (12-78); ALBUMIN 4.5 g/dL (3.4-5.0); ALKALINE PHOSPHATASE 81 U/L (46-116); ASPARTATE AMINOTRANSFERASE 37 U/L (15-37); BILIRUBIN,TOTAL 0.4 mg/dL (0.1-1.0); TOTAL PROTEIN, SERUM 8.7 g/dL (6.4-8.2)
[2022-03-08 16:14] LABS: COVID AG,FIA SOURCE NASOPHARYNGEAL
[2022-03-08 20:41] LABS: AMPHET/METH SCREEN,URINE NEGATIVE (NEGATIVE); BARBITURATE SCREEN, URINE NEGATIVE (NEGATIVE); BENZODIAZEPINES SCREEN,URINE POSITIVE (NEGATIVE); CANNABINOID SCREEN,URINE NEGATIVE (NEGATIVE); COCAINE SCREEN,URINE NEGATIVE (NEGATIVE); METHADONE SCREEN, URINE NEGATIVE (NEGATIVE); OPIATE SCREEN,URINE NEGATIVE (NEGATIVE)
[2022-03-08 20:42] LABS: PHENCYCLIDINE SCREEN,URINE NEGATIVE (NEGATIVE)
[2022-03-08] MEDS ORDERED: ZOLPIDEM TARTRATE 10 MG TABLET PO PRN (20:45)
[2022-03-08] MEDS ORDERED: LORazepam 2 MG TABLET PO PRN (20:45)
[2022-03-08 20:52] LABS: APPEARANCE,URINE CLEAR (CLEAR); BILIRUBIN,URINE NEGATIVE (NEGATIVE); GLUCOSE, URINE (UA) NEGATIVE (NEGATIVE); KETONES,URINE 40-60 mg/dL (NEGATIVE); LEUKOCYTE ESTERASE ,URINE NEGATIVE (NEGATIVE); NITRATE,URINE NEGATIVE (NEGATIVE); OCCULT BLOOD,URINE NEGATIVE (NEGATIVE); PH,URINE 5.5 (5.0-8.0); PROTEIN,URINE 300-600,SEE CONFIRM mg/dL (NEGATIVE); SPECIFIC GRAVITIY, URINE 1.027 (1.003-1.030); UROBILINOGEN,URINE <=1.0 mg/dL (<=1.0)
[2022-03-08 21:31] LABS: SULFOSALICYLIC ACID,URINE 4+ (Negative)
[2022-03-08 21:35] LABS: BACTERIA,URINE Rare /HPF (None Seen); RBC,URINE None Seen /HPF (0-2)
[2022-03-09] VITALS (9 sets, daily range): BP systolic 106–130; BP diastolic 64–86
[2022-03-09] MEDS ORDERED: PNEUMOCOCCAL VACCINE POLYVALENT 0.5 ML VIAL [PPSV23] IM. ONE (06:00)
[2022-03-09 10:03] LABS: CHOL/HDL RATIO 3.6 (4.2-7.3); FREE T4 (FREE THYROXINE) 0.93 ng/dL (0.76-1.46); THYROID STIMULATING HORMONE 1.2 uIU/mL (0.36-3.74)
[2022-03-09] MEDS ORDERED: LORazepam 2 MG TABLET PO PRN (10:15)
[2022-03-09] MEDS ORDERED: CYANOCOBALAMIN 1,000 MCG/ML VIAL IM ONE (10:15)
[2022-03-09] MEDS: FOLIC ACID 1 MG TABLET PO SCH (10:45)
[2022-03-09] MEDS: OLANZapine 10 MG TABLET PO SCH (10:45)
[2022-03-09] MEDS: SERTRALINE HCL 100 MG TABLET PO SCH (10:45)
[2022-03-09] MEDS: THIAMINE 100 MG TABLET PO SCH ×2 (10:45→16:11)
[2022-03-09] MEDS: MULTIVITAMINS WITH MINERALS, THERAPEUTIC TABLET PO SCH (10:45)
[2022-03-09] MEDS ORDERED: IBUPROFEN 400 MG TABLET PO PRN (17:00)
[2022-03-09] MEDS ORDERED: MAG HYDROX/AL HYDROX/SIMETH ES 30 ML SUSPENSION UDCUP PO PRN (17:00)
[2022-03-09] MEDS ORDERED: GuaiFENesin/D-METHORPHAN [SUGAR-FREE] 200-20MG/10 ML SYRUP UDCUP PO PRN (17:00)
[2022-03-09] MEDS ORDERED: MAGNESIUM HYDROXIDE SUSPENSION 30 ML UDCUP PO PRN (17:00)
[2022-03-09] MEDS ORDERED: ONDANSETRON HCL 4 MG TABLET PO PRN (17:00)
[2022-03-09] MEDS ORDERED: PETROLATUM,WHITE 28 GM JELLY TP PRN (17:00)
[2022-03-09] MEDS ORDERED: CloNIDine HCL 0.1 MG TABLET PO PRN (17:00)
[2022-03-09] MEDS ORDERED: NICOTINE 14 MG/24 HOUR PATCH TD PRN (17:00)
[2022-03-09] MEDS ORDERED: LOPERAMIDE HCL 2 MG CAPSULE PO PRN (17:00)
[2022-03-09] MEDS ORDERED: ALBUTEROL SULFATE HFA 90 MCG/PUFF 8 GM INHALER IH PRN (17:00)
[2022-03-09] MEDS ORDERED: DOCUSATE SODIUM 100 MG CAPSULE PO PRN (17:00)
[2022-03-09] MEDS: OLANZapine 7.5 MG TABLET PO SCH (20:13)
[2022-03-09] MEDS: TraZODone HCL 50 MG TABLET PO SCH (20:13)
[2022-03-10 01:25] VITALS: BP 110/67
[2022-03-10 05:43] VITALS: BP 115/68
[2022-03-10] MEDS ORDERED: LORazepam 2 MG TABLET PO PRN (07:00)
[2022-03-10] MEDS: THIAMINE 100 MG TABLET PO SCH ×2 (08:37→16:40)
[2022-03-10] MEDS: MULTIVITAMINS WITH MINERALS, THERAPEUTIC TABLET PO SCH (08:37)
[2022-03-10] MEDS: LISINOPRIL 20 MG TABLET PO SCH (08:37)
[2022-03-10] MEDS: ALLOPURINOL 300 MG TABLET PO SCH (08:37)
[2022-03-10] MEDS: FOLIC ACID 1 MG TABLET PO SCH (08:37)
[2022-03-10] MEDS: AmLODIPine BESYLATE 2.5 MG TABLET PO SCH (08:37)
[2022-03-10] MEDS: LORazepam 2 MG TABLET PO SCH ×4 (08:38→20:16)
[2022-03-10] MEDS: SERTRALINE HCL 100 MG TABLET PO SCH (08:38)
[2022-03-10] MEDS: OLANZapine 10 MG TABLET PO SCH (08:38)
[2022-03-10 09:05] VITALS: BP 112/65
[2022-03-10 09:48] VITALS: BP 112/65
[2022-03-10 16:00] VITALS: BP 127/85
[2022-03-10 20:05] VITALS: BP 127/85
[2022-03-10] MEDS: TraZODone HCL 50 MG TABLET PO SCH (20:16)
[2022-03-10] MEDS: OLANZapine 7.5 MG TABLET PO SCH (20:16)
[2022-03-11 00:46] VITALS: BP 115/82
[2022-03-11] MEDS: OLANZapine 10 MG TABLET PO SCH (08:48)
[2022-03-11] MEDS: AmLODIPine BESYLATE 2.5 MG TABLET PO SCH (08:48)
[2022-03-11] MEDS: THIAMINE 100 MG TABLET PO SCH ×2 (08:48→16:35)
[2022-03-11] MEDS: FOLIC ACID 1 MG TABLET PO SCH (08:48)
[2022-03-11] MEDS: LORazepam 2 MG TABLET PO SCH ×4 (08:48→20:30)
[2022-03-11] MEDS: MULTIVITAMINS WITH MINERALS, THERAPEUTIC TABLET PO SCH (08:49)
[2022-03-11] MEDS: ALLOPURINOL 300 MG TABLET PO SCH (08:49)
[2022-03-11] MEDS: LISINOPRIL 20 MG TABLET PO SCH (08:49)
[2022-03-11] MEDS: SERTRALINE HCL 100 MG TABLET PO SCH (08:49)
[2022-03-11 09:46] VITALS: BP 121/71
[2022-03-11 10:39] VITALS: BP 121/71
[2022-03-11 20:00] VITALS: BP 129/61
[2022-03-11] MEDS: TraZODone HCL 50 MG TABLET PO SCH (20:30)
[2022-03-11] MEDS: OLANZapine 7.5 MG TABLET PO SCH (20:30)
[2022-03-12] MEDS ORDERED: LORazepam 1 MG TABLET PO PRN (07:00)
[2022-03-12 08:39] VITALS: BP 141/88
[2022-03-12] MEDS: SERTRALINE HCL 100 MG TABLET PO SCH (09:52)
[2022-03-12] MEDS: OLANZapine 10 MG TABLET PO SCH (09:52)
[2022-03-12] MEDS: AmLODIPine BESYLATE 2.5 MG TABLET PO SCH (09:52)
[2022-03-12] MEDS: THIAMINE 100 MG TABLET PO SCH ×2 (09:52→16:41)
[2022-03-12] MEDS: ALLOPURINOL 300 MG TABLET PO SCH (09:52)
[2022-03-12] MEDS: LISINOPRIL 20 MG TABLET PO SCH (09:52)
[2022-03-12] MEDS: FOLIC ACID 1 MG TABLET PO SCH (09:52)
[2022-03-12] MEDS: LORazepam 1 MG TABLET PO SCH ×4 (09:52→20:31)
[2022-03-12] MEDS: MULTIVITAMINS WITH MINERALS, THERAPEUTIC TABLET PO SCH (09:53)
[2022-03-12 20:06] VITALS: BP 138/94
[2022-03-12] MEDS: OLANZapine 7.5 MG TABLET PO SCH (20:31)
[2022-03-12] MEDS: TraZODone HCL 50 MG TABLET PO SCH (20:31)
[2022-03-13] MEDS ORDERED: LORazepam 1 MG TABLET PO PRN (07:00)
[2022-03-13 08:17] VITALS: BP 133/82
[2022-03-13] MEDS: ALLOPURINOL 300 MG TABLET PO SCH (08:50)
[2022-03-13] MEDS: AmLODIPine BESYLATE 2.5 MG TABLET PO SCH (08:50)
[2022-03-13] MEDS: THIAMINE 100 MG TABLET PO SCH ×2 (08:50→16:54)
[2022-03-13] MEDS: FOLIC ACID 1 MG TABLET PO SCH (08:50)
[2022-03-13] MEDS: OLANZapine 10 MG TABLET PO SCH (08:50)
[2022-03-13] MEDS: MULTIVITAMINS WITH MINERALS, THERAPEUTIC TABLET PO SCH (08:50)
[2022-03-13] MEDS: SERTRALINE HCL 100 MG TABLET PO SCH (08:50)
[2022-03-13] MEDS: LISINOPRIL 20 MG TABLET PO SCH (08:50)
[2022-03-13 20:23] VITALS: BP 133/82
[2022-03-13] MEDS: OLANZapine 7.5 MG TABLET PO SCH (20:54)
[2022-03-13] MEDS: TraZODone HCL 50 MG TABLET PO SCH (20:54)
[2022-03-14] MEDS: MULTIVITAMINS WITH MINERALS, THERAPEUTIC TABLET PO SCH (08:20)
[2022-03-14] MEDS: FOLIC ACID 1 MG TABLET PO SCH (08:20)
[2022-03-14] MEDS: LISINOPRIL 20 MG TABLET PO SCH (08:21)
[2022-03-14] MEDS: SERTRALINE HCL 100 MG TABLET PO SCH (08:21)
[2022-03-14] MEDS: OLANZapine 10 MG TABLET PO SCH (08:21)
[2022-03-14] MEDS: AmLODIPine BESYLATE 2.5 MG TABLET PO SCH (08:21)
[2022-03-14] MEDS: THIAMINE 100 MG TABLET PO SCH ×2 (08:21→17:15)
[2022-03-14] MEDS: ALLOPURINOL 300 MG TABLET PO SCH (08:22)
[2022-03-14 08:52] VITALS: BP 117/71
[2022-03-14 09:56] LABS: GLUCOMETER DEV NAME(LOC) POC.BV
[2022-03-14] MEDS: HydrOXYzine PAMOATE 25 MG CAPSULE PO PRN ×2 (11:22→17:20)
[2022-03-14 20:22] VITALS: BP 123/82
[2022-03-14] MEDS: OLANZapine 7.5 MG TABLET PO SCH (20:23)
[2022-03-14] MEDS: TraZODone HCL 50 MG TABLET PO SCH (20:23)
[2022-03-15 08:20] VITALS: BP 141/87
[2022-03-15] MEDS: LISINOPRIL 20 MG TABLET PO SCH (08:54)
[2022-03-15] MEDS: SERTRALINE HCL 100 MG TABLET PO SCH (08:54)
[2022-03-15] MEDS: OLANZapine 10 MG TABLET PO SCH (08:54)
[2022-03-15] MEDS: FOLIC ACID 1 MG TABLET PO SCH (08:54)
[2022-03-15] MEDS: AmLODIPine BESYLATE 2.5 MG TABLET PO SCH (08:54)
[2022-03-15] MEDS: THIAMINE 100 MG TABLET PO SCH ×2 (08:54→16:13)
[2022-03-15] MEDS: ALLOPURINOL 300 MG TABLET PO SCH (08:54)
[2022-03-15] MEDS: MULTIVITAMINS WITH MINERALS, THERAPEUTIC TABLET PO SCH (08:54)
[2022-03-15] MEDS: HydrOXYzine PAMOATE 25 MG CAPSULE PO PRN (14:39)
[2022-03-15 20:01] VITALS: BP 135/82
[2022-03-15] MEDS: OLANZapine 7.5 MG TABLET PO SCH (20:09)
[2022-03-15] MEDS: TraZODone HCL 50 MG TABLET PO SCH (20:09)
[2022-03-16 08:04] VITALS: BP 128/78
[2022-03-16] MEDS: SERTRALINE HCL 100 MG TABLET PO SCH (08:24)
[2022-03-16] MEDS: MULTIVITAMINS WITH MINERALS, THERAPEUTIC TABLET PO SCH (08:24)
[2022-03-16] MEDS: OLANZapine 10 MG TABLET PO SCH (08:24)
[2022-03-16] MEDS: LISINOPRIL 20 MG TABLET PO SCH (08:25)
[2022-03-16] MEDS: AmLODIPine BESYLATE 2.5 MG TABLET PO SCH (08:25)
[2022-03-16] MEDS: ALLOPURINOL 300 MG TABLET PO SCH (08:25)
[2022-03-16] MEDS: THIAMINE 100 MG TABLET PO SCH ×2 (08:25→16:25)
[2022-03-16] MEDS: FOLIC ACID 1 MG TABLET PO SCH (08:25)
[2022-03-16] MEDS: HydrOXYzine PAMOATE 25 MG CAPSULE PO PRN (14:40)
[2022-03-16] MEDS: OLANZapine 7.5 MG TABLET PO SCH (20:05)
[2022-03-16] MEDS: TraZODone HCL 50 MG TABLET PO SCH (20:05)
[2022-03-16 20:26] VITALS: BP 108/64
[2022-03-17] MEDS: MULTIVITAMINS WITH MINERALS, THERAPEUTIC TABLET PO SCH (08:24)
[2022-03-17] MEDS: ALLOPURINOL 300 MG TABLET PO SCH (08:24)
[2022-03-17] MEDS: SERTRALINE HCL 100 MG TABLET PO SCH (08:24)
[2022-03-17] MEDS: FOLIC ACID 1 MG TABLET PO SCH (08:24)
[2022-03-17] MEDS: THIAMINE 100 MG TABLET PO SCH ×2 (08:24→16:27)
[2022-03-17] MEDS: OLANZapine 10 MG TABLET PO SCH (08:24)
[2022-03-17] MEDS: AmLODIPine BESYLATE 2.5 MG TABLET PO SCH (08:24)
[2022-03-17] MEDS: LISINOPRIL 20 MG TABLET PO SCH (08:24)
[2022-03-17] MEDS: HydrOXYzine PAMOATE 25 MG CAPSULE PO PRN ×2 (09:11→14:25)
[2022-03-17 09:12] VITALS: BP 125/62
[2022-03-17 15:56] VITALS: BP 116/79
[2022-03-17] MEDS: HALOPERIDOL 5 MG TABLET PO PRN (16:27)
[2022-03-17 20:37] VITALS: BP 120/82
[2022-03-17] MEDS: TraZODone HCL 50 MG TABLET PO SCH (20:38)
[2022-03-17] MEDS: OLANZapine 7.5 MG TABLET PO SCH (20:38)
[2022-03-18] MEDS: HALOPERIDOL 5 MG TABLET PO PRN ×2 (08:03→14:36)
[2022-03-18] MEDS: HydrOXYzine PAMOATE 25 MG CAPSULE PO PRN ×2 (08:03→14:36)
[2022-03-18] MEDS: ACETAMINOPHEN 325 MG TABLET PO PRN ×2 (08:03→14:36)
[2022-03-18 08:21] VITALS: BP 126/82
[2022-03-18] MEDS: LISINOPRIL 20 MG TABLET PO SCH (09:36)
[2022-03-18] MEDS: OLANZapine 10 MG TABLET PO SCH (09:36)
[2022-03-18] MEDS: MULTIVITAMINS WITH MINERALS, THERAPEUTIC TABLET PO SCH (09:36)
[2022-03-18] MEDS: FOLIC ACID 1 MG TABLET PO SCH (09:36)
[2022-03-18] MEDS: SERTRALINE HCL 100 MG TABLET PO SCH (09:36)
[2022-03-18] MEDS: THIAMINE 100 MG TABLET PO SCH ×2 (09:36→15:50)
[2022-03-18] MEDS: ALLOPURINOL 300 MG TABLET PO SCH (09:37)
[2022-03-18] MEDS: AmLODIPine BESYLATE 2.5 MG TABLET PO SCH (09:37)
[2022-03-18] MEDS: ERYTHROMYCIN BASE TP SCH (15:50)
[2022-03-18] MEDS: ETHANOL TP SCH (15:50)
[2022-03-18] MEDS: AMOX TR/POT CLAV 500 MG/125 MG TABLET PO SCH (16:52)
[2022-03-18 20:07] VITALS: BP 125/79
[2022-03-18] MEDS: OLANZapine 7.5 MG TABLET PO SCH (20:26)
[2022-03-18] MEDS: TraZODone HCL 50 MG TABLET PO SCH (20:27)
[2022-03-19] MEDS: LISINOPRIL 20 MG TABLET PO SCH (08:03)
[2022-03-19] MEDS: SERTRALINE HCL 100 MG TABLET PO SCH (08:03)
[2022-03-19] MEDS: AMOX TR/POT CLAV 500 MG/125 MG TABLET PO SCH ×2 (08:03→16:37)
[2022-03-19] MEDS: AmLODIPine BESYLATE 2.5 MG TABLET PO SCH (08:04)
[2022-03-19] MEDS: OLANZapine 10 MG TABLET PO SCH (08:04)
[2022-03-19] MEDS: MULTIVITAMINS WITH MINERALS, THERAPEUTIC TABLET PO SCH (08:04)
[2022-03-19] MEDS: HydrOXYzine PAMOATE 25 MG CAPSULE PO PRN ×2 (08:04→16:37)
[2022-03-19] MEDS: ALLOPURINOL 300 MG TABLET PO SCH (08:08)
[2022-03-19 08:18] VITALS: BP 122/72
[2022-03-19] MEDS: ETHANOL TP SCH ×2 (09:18→16:37)
[2022-03-19] MEDS: ERYTHROMYCIN BASE TP SCH ×2 (09:18→16:37)
[2022-03-19] MEDS: HALOPERIDOL 5 MG TABLET PO PRN (11:31)
[2022-03-19] MEDS: OLANZapine 7.5 MG TABLET PO SCH (20:32)
[2022-03-19] MEDS: TraZODone HCL 50 MG TABLET PO SCH (20:32)
[2022-03-19 20:35] VITALS: BP 120/79
[2022-03-20 08:23] VITALS: BP 115/76
[2022-03-20] MEDS: MULTIVITAMINS WITH MINERALS, THERAPEUTIC TABLET PO SCH (09:01)
[2022-03-20] MEDS: AmLODIPine BESYLATE 2.5 MG TABLET PO SCH (09:01)
[2022-03-20] MEDS: OLANZapine 10 MG TABLET PO SCH (09:01)
[2022-03-20] MEDS: ALLOPURINOL 300 MG TABLET PO SCH (09:01)
[2022-03-20] MEDS: LISINOPRIL 20 MG TABLET PO SCH (09:01)
[2022-03-20] MEDS: AMOX TR/POT CLAV 500 MG/125 MG TABLET PO SCH ×2 (09:01→16:24)
[2022-03-20] MEDS: SERTRALINE HCL 100 MG TABLET PO SCH (09:01)
[2022-03-20] MEDS: ETHANOL TP SCH ×2 (09:02→16:25)
[2022-03-20] MEDS: ERYTHROMYCIN BASE TP SCH ×2 (09:02→16:25)
[2022-03-20] MEDS: HydrOXYzine PAMOATE 25 MG CAPSULE PO PRN (16:24)
[2022-03-20] MEDS: ACETAMINOPHEN 325 MG TABLET PO PRN (16:24)
[2022-03-20] MEDS: HALOPERIDOL 5 MG TABLET PO PRN (16:24)
[2022-03-20] MEDS: TraZODone HCL 50 MG TABLET PO SCH (20:00)
[2022-03-20] MEDS: OLANZapine 7.5 MG TABLET PO SCH (20:01)
[2022-03-20 20:09] VITALS: BP 101/65
[2022-03-21] MEDS: AmLODIPine BESYLATE 2.5 MG TABLET PO SCH (08:46)
[2022-03-21] MEDS: MULTIVITAMINS WITH MINERALS, THERAPEUTIC TABLET PO SCH (08:46)
[2022-03-21] MEDS: LISINOPRIL 20 MG TABLET PO SCH (08:46)
[2022-03-21] MEDS: AMOX TR/POT CLAV 500 MG/125 MG TABLET PO SCH ×2 (08:46→16:22)
[2022-03-21] MEDS: OLANZapine 10 MG TABLET PO SCH (08:46)
[2022-03-21] MEDS: SERTRALINE HCL 100 MG TABLET PO SCH (08:46)
[2022-03-21] MEDS: ALLOPURINOL 300 MG TABLET PO SCH (08:47)
[2022-03-21] MEDS: ETHANOL TP SCH ×2 (08:47→16:22)
[2022-03-21] MEDS: ERYTHROMYCIN BASE TP SCH ×2 (08:47→16:22)
[2022-03-21 08:58] VITALS: BP 128/82
[2022-03-21 09:46] LABS: GLUCOMETER DEV NAME(LOC) POC.BV
[2022-03-21] MEDS: HydrOXYzine PAMOATE 25 MG CAPSULE PO PRN (14:22)
[2022-03-21] MEDS: HALOPERIDOL 5 MG TABLET PO PRN (14:22)
[2022-03-21] MEDS: TraZODone HCL 50 MG TABLET PO SCH (20:02)
[2022-03-21] MEDS: OLANZapine 7.5 MG TABLET PO SCH (20:02)
[2022-03-21 20:15] VITALS: BP 130/81
[2022-03-22 08:02] VITALS: BP 126/69
[2022-03-22] MEDS: ALLOPURINOL 300 MG TABLET PO SCH (08:07)
[2022-03-22] MEDS: AmLODIPine BESYLATE 2.5 MG TABLET PO SCH (08:07)
[2022-03-22] MEDS: LISINOPRIL 20 MG TABLET PO SCH (08:07)
[2022-03-22] MEDS: SERTRALINE HCL 100 MG TABLET PO SCH (08:07)
[2022-03-22] MEDS: OLANZapine 10 MG TABLET PO SCH (08:07)
[2022-03-22] MEDS: AMOX TR/POT CLAV 500 MG/125 MG TABLET PO SCH ×2 (08:07→16:38)
[2022-03-22] MEDS: MULTIVITAMINS WITH MINERALS, THERAPEUTIC TABLET PO SCH (08:07)
[2022-03-22] MEDS: ERYTHROMYCIN BASE TP SCH ×2 (08:09→16:38)
[2022-03-22] MEDS: ETHANOL TP SCH ×2 (08:09→16:38)
[2022-03-22] MEDS: HALOPERIDOL 5 MG TABLET PO PRN (14:01)
[2022-03-22] MEDS: HydrOXYzine PAMOATE 25 MG CAPSULE PO PRN (14:01)
[2022-03-22 20:02] VITALS: BP 135/83
[2022-03-22] MEDS: OLANZapine 7.5 MG TABLET PO SCH (20:05)
[2022-03-22] MEDS: TraZODone HCL 50 MG TABLET PO SCH (20:05)
[2022-03-23 08:02] VITALS: BP 119/70
[2022-03-23] MEDS: ALLOPURINOL 300 MG TABLET PO SCH (08:21)
[2022-03-23] MEDS: MULTIVITAMINS WITH MINERALS, THERAPEUTIC TABLET PO SCH (08:21)
[2022-03-23] MEDS: AMOX TR/POT CLAV 500 MG/125 MG TABLET PO SCH ×2 (08:21→16:08)
[2022-03-23] MEDS: AmLODIPine BESYLATE 2.5 MG TABLET PO SCH (08:21)
[2022-03-23] MEDS: SERTRALINE HCL 100 MG TABLET PO SCH (08:21)
[2022-03-23] MEDS: LISINOPRIL 20 MG TABLET PO SCH (08:21)
[2022-03-23] MEDS: OLANZapine 10 MG TABLET PO SCH (08:21)
[2022-03-23] MEDS: ERYTHROMYCIN BASE TP SCH ×2 (08:22→16:09)
[2022-03-23] MEDS: ETHANOL TP SCH ×2 (08:22→16:09)
[2022-03-23 20:06] VITALS: BP 137/89
[2022-03-23] MEDS: OLANZapine 7.5 MG TABLET PO SCH (20:23)
[2022-03-23] MEDS: TraZODone HCL 50 MG TABLET PO SCH (20:23)
[2022-03-24 08:11] VITALS: BP 105/59
[2022-03-24] MEDS: OLANZapine 10 MG TABLET PO SCH (08:14)
[2022-03-24] MEDS: ALLOPURINOL 300 MG TABLET PO SCH (08:14)
[2022-03-24] MEDS: MULTIVITAMINS WITH MINERALS, THERAPEUTIC TABLET PO SCH (08:14)
[2022-03-24] MEDS: AMOX TR/POT CLAV 500 MG/125 MG TABLET PO SCH ×2 (08:14→16:09)
[2022-03-24] MEDS: SERTRALINE HCL 100 MG TABLET PO SCH (08:14)
[2022-03-24] MEDS: ETHANOL TP SCH ×2 (08:15→16:10)
[2022-03-24] MEDS: ERYTHROMYCIN BASE TP SCH ×2 (08:15→16:10)
[2022-03-24] MEDS: LISINOPRIL 20 MG TABLET PO SCH (08:22)
[2022-03-24] MEDS: AmLODIPine BESYLATE 2.5 MG TABLET PO SCH (08:22)
[2022-03-24 20:15] VITALS: BP 115/62
[2022-03-24] MEDS: TraZODone HCL 50 MG TABLET PO SCH (20:31)
[2022-03-24] MEDS: OLANZapine 7.5 MG TABLET PO SCH (20:31)
[2022-03-25 08:09] VITALS: BP 120/70
[2022-03-25] MEDS: LISINOPRIL 20 MG TABLET PO SCH (08:52)
[2022-03-25] MEDS: OLANZapine 10 MG TABLET PO SCH (08:52)
[2022-03-25] MEDS: ALLOPURINOL 300 MG TABLET PO SCH (08:52)
[2022-03-25] MEDS: SERTRALINE HCL 100 MG TABLET PO SCH (08:52)
[2022-03-25] MEDS: MULTIVITAMINS WITH MINERALS, THERAPEUTIC TABLET PO SCH (08:52)
[2022-03-25] MEDS: ETHANOL TP SCH ×2 (08:53→16:51)
[2022-03-25] MEDS: ERYTHROMYCIN BASE TP SCH ×2 (08:53→16:51)
[2022-03-25] MEDS: AMOX TR/POT CLAV 500 MG/125 MG TABLET PO SCH ×2 (08:53→16:51)
[2022-03-25] MEDS: AmLODIPine BESYLATE 2.5 MG TABLET PO SCH (08:53)
[2022-03-25 20:08] VITALS: BP 108/60
[2022-03-25] MEDS: OLANZapine 7.5 MG TABLET PO SCH (20:29)
[2022-03-25] MEDS: TraZODone HCL 50 MG TABLET PO SCH (20:29)
[2022-03-26 08:35] VITALS: BP 112/75
[2022-03-26] MEDS: OLANZapine 10 MG TABLET PO SCH (10:01)
[2022-03-26] MEDS: LISINOPRIL 20 MG TABLET PO SCH (10:01)
[2022-03-26] MEDS: AMOX TR/POT CLAV 500 MG/125 MG TABLET PO SCH ×2 (10:01→16:59)
[2022-03-26] MEDS: SERTRALINE HCL 100 MG TABLET PO SCH (10:01)
[2022-03-26] MEDS: AmLODIPine BESYLATE 2.5 MG TABLET PO SCH (10:01)
[2022-03-26] MEDS: ALLOPURINOL 300 MG TABLET PO SCH (10:01)
[2022-03-26] MEDS: MULTIVITAMINS WITH MINERALS, THERAPEUTIC TABLET PO SCH (10:01)
[2022-03-26] MEDS: ETHANOL TP SCH ×2 (10:02→16:59)
[2022-03-26] MEDS: ERYTHROMYCIN BASE TP SCH ×2 (10:02→16:59)
[2022-03-26] MEDS: HydrOXYzine PAMOATE 25 MG CAPSULE PO PRN (16:15)
[2022-03-26 20:09] VITALS: BP 118/72
[2022-03-26] MEDS: TraZODone HCL 50 MG TABLET PO SCH (20:13)
[2022-03-26] MEDS: OLANZapine 7.5 MG TABLET PO SCH (20:13)
[2022-03-27 08:12] VITALS: BP 121/71
[2022-03-27] MEDS: LISINOPRIL 20 MG TABLET PO SCH (09:06)
[2022-03-27] MEDS: AMOX TR/POT CLAV 500 MG/125 MG TABLET PO SCH ×2 (09:06→16:10)
[2022-03-27] MEDS: AmLODIPine BESYLATE 2.5 MG TABLET PO SCH (09:06)
[2022-03-27] MEDS: MULTIVITAMINS WITH MINERALS, THERAPEUTIC TABLET PO SCH (09:06)
[2022-03-27] MEDS: OLANZapine 10 MG TABLET PO SCH (09:06)
[2022-03-27] MEDS: ALLOPURINOL 300 MG TABLET PO SCH (09:06)
[2022-03-27] MEDS: SERTRALINE HCL 100 MG TABLET PO SCH (09:06)
[2022-03-27] MEDS: ERYTHROMYCIN BASE TP SCH ×2 (09:07→16:11)
[2022-03-27] MEDS: ETHANOL TP SCH ×2 (09:07→16:11)
[2022-03-27] MEDS ORDERED: LISI20TA24 PO (09:08)
[2022-03-27] MEDS ORDERED: AMLO2.5T96 PO (09:08)
[2022-03-27] MEDS ORDERED: ALLO-45 PO (09:08)
[2022-03-27] MEDS ORDERED: SERT-440 PO (09:08)
[2022-03-27] MEDS ORDERED: OLAN10 PO (09:08)
[2022-03-27] MEDS ORDERED: OLAN7.5T22 PO (09:08)
[2022-03-27] MEDS ORDERED: TRAZ-252 PO (09:08)
== END 2022-03-27 16:30 | disposition home or self-care (01) | DRG 750 ==
LOC: EMS 15:21 → B2S 03-09 00:25
PROVIDERS: ADMIT Psychiatry & Neurology Psychiatry; ATTEND Psychiatry & Neurology Psychiatry
DX: F25.1 Schizoaffective disorder, depressive type (principal); R45.851 Suicidal ideations; F10.229 Alcohol dependence with intoxication, unspecified; I10 Essential (primary) hypertension; M10.9 Gout, unspecified; F15.10 Other stimulant abuse, uncomplicated; K21.9 Gastro-esophageal reflux disease without esophagitis; R73.9 Hyperglycemia, unspecified; Z59.00 Homelessness unspecified; Z79.899 Other long term (current) drug therapy; Z91.51 Personal history of suicidal behavior
CPT/HCPCS: 80053; 80061; 81001; 81002; 81003; 83735; 84439; 84443; 85025; 99285; G0480; J3420